=== PATIENT | male | born 1975 | race Caucasian/White ===

== ENCOUNTER 2018-05-12 21:39 | Emergency (ER) | payer OTHER ==
[~2018-05-12] VITALS: Ht 175.3 cm; Wt 87.1 kg
[~2018-05-12 21:39] MED LIST: AMLO5 PO; BISA10S PR; CLON1 PO; GABA300 PO; HYDACE5 PO; Humulin R500 UNIT/1 IJ; INSLI100I SC; INSULANPEN; INSULIN LEVIMIR; LISI20; METF500; METO25ER PO; METO50ER; Miralax17 GM PO; PIOG15; TADA10TA PO; TRAM50 PO
[2018-05-12 22:26] LABS: BASOPHILS ABSOLUTE AUTO 0.06 K/mm3 (0.00-0.23); BASOPHILS PERCENT AUTO 0 % (0-2); EOSINOPHILS ABSOLUTE AUTO 0.09 K/mm3 (0.00-0.68); EOSINOPHILS PERCENT AUTO 1 % (0-6); Hematocrit 39.9 % (37.0-53.0); Hemoglobin 14.2 g/dL (13.5-17.5); IMMATURE GRAN ABSOLUTE AUTO 0.18 K/mm3 (0.00-0.10); IMMATURE GRAN PERCENT AUTO 1 % (0-1); LYMPHOCYTES ABSOLUTE AUTO 2.11 K/mm3 (0.84-5.20); LYMPHOCYTES PERCENT AUTO 12 % (21-46); MONOCYTES ABSOLUTE AUTO 1.07 K/mm3 (0.16-1.47); MONOCYTES PERCENT AUTO 6 % (4-13); Mean Corpuscular HGB 29.1 pg (26.0-34.0); Mean Corpuscular HGB Conc 35.6 g/dL (31.5-36.5); Mean Corpuscular Volume 82 fL (80-100); Mean Platelet Volume 10.1 fL (9.1-12.4); NEUTROPHILS ABSOLUTE AUTO 14.43 K/mm3 (1.96-9.15); NEUTROPHILS PERCENT AUTO 80 % (41-73); Platelet Count 404 K/mm3 (150-400); RDW Coefficient Variation 11.8 % (11.7-14.2); RDW Standard Deviation 34.9 fL (35.1-46.3); Red Blood Cell Count 4.88 M/mm3 (4.30-5.90); White Blood Cell Count 17.94 K/mm3 (4.00-11.30)
[2018-05-12 22:45] LABS: Alanine Aminotransfer (ALT/SGP 28 U/L (12-78); Albumin, Blood 3.3 g/dL (3.4-5.0); Albumin/Globulin Ratio 0.7 (0.8-1.8); Alk Phos 74 U/L (50-136); Anion Gap 10 mmol/L (6-16); Aspartate Aminotrans (AST/SGOT 14 U/L (12-37); Bilirubin, Total 0.3 mg/dL (0.1-1.0); Blood Urea Nitrogen 19 mg/dL (8-24); Bun/Creatinine Ratio 25.7 (12.0-20.0); CO2, Blood 24 mmol/L (21-32); Calcium, Blood 9.4 mg/dL (8.5-10.1); Chloride, Blood 101 mmol/L (98-108); Creatinine, Blood 0.74 mg/dL (0.60-1.20); Globulin, Blood 4.5 g/dL (2.2-4.0); Glomerular Filtration Rate >60 (60-); Glucose, Blood 389 mg/dL (70-99); Potassium, Blood 4.3 mmol/L (3.5-5.5); Sodium, Blood 135 mmol/L (136-145); Total Protein, Blood 7.8 g/dL (6.4-8.2)
[2018-05-13] MEDS ORDERED: Valium5 MG PO (03:58)
[2018-05-13] MEDS ORDERED: Zofran Odt8 MG SL (03:58)
[2018-05-13] MEDS ORDERED: Motion Sickness25 M1 PO (03:58)
== END 2018-05-13 04:12 | disposition home or self-care (01) ==
LOC: ER 21:39
PROVIDERS: Internal Medicine
DX: H81.10 Benign paroxysmal vertigo, unspecified ear (principal); E11.65 Type 2 diabetes mellitus with hyperglycemia; Z79.4 Long term (current) use of insulin; Z79.899 Other long term (current) drug therapy; Z79.84 Long term (current) use of oral hypoglycemic drugs; I10 Essential (primary) hypertension
CPT/HCPCS: 36415; 80053; 85025; 93005; 93010; 96374; 96376; 99283; J2405

== ENCOUNTER → 2020-03-03 | Outpatient (CLI) | payer OTHER ==
[~2020-03-03] MED LIST changes: +Motion Sickness25 M1 PO; +Valium5 MG PO; +Zofran Odt8 MG SL
== END | disposition home or self-care (01) ==
LOC: LAB SHORT 13:11 → LAB 13:11
DX: E10.65 Type 1 diabetes mellitus with hyperglycemia (principal)
CPT/HCPCS: 82043

== ENCOUNTER 2020-04-15 07:51 | Inpatient (IN) | payer OTHER ==
[~2020-04-15] VITALS: Ht 175.3 cm; Wt 101.5 kg
[~2020-04-15 07:51] MED LIST changes: +AMOCLA875 PO; +Humalog100 UNIT/1; -LISI20; +LISI20 PO; +OXYC5 PO
[2020-04-15 08:15] LABS: BASOPHILS ABSOLUTE AUTO 0.05 K/mm3 (0.00-0.23); BASOPHILS PERCENT AUTO 0 % (0-2); EOSINOPHILS ABSOLUTE AUTO 0.58 K/mm3 (0.00-0.68); EOSINOPHILS PERCENT AUTO 4 % (0-6); Hematocrit 34.9 % (37.0-53.0); Hemoglobin 11.5 g/dL (13.5-17.5); IMMATURE GRAN ABSOLUTE AUTO 0.07 K/mm3 (0.00-0.10); IMMATURE GRAN PERCENT AUTO 0 % (0-1); LYMPHOCYTES ABSOLUTE AUTO 1.47 K/mm3 (0.84-5.20); LYMPHOCYTES PERCENT AUTO 9 % (21-46); MONOCYTES ABSOLUTE AUTO 1.68 K/mm3 (0.16-1.47); MONOCYTES PERCENT AUTO 10 % (4-13); Mean Corpuscular HGB 29.7 pg (26.0-34.0); Mean Corpuscular Volume 90 fL (80-100); Mean Platelet Volume 10.7 fL (9.1-12.4); NEUTROPHILS ABSOLUTE AUTO 12.36 K/mm3 (1.96-9.15); NEUTROPHILS PERCENT AUTO 76 % (41-73); Platelet Count 354 K/mm3 (150-400); RDW Coefficient Variation 12.5 % (11.7-14.2); RDW Standard Deviation 41.2 fL (35.1-46.3); Red Blood Cell Count 3.87 M/mm3 (4.30-5.90); White Blood Cell Count 16.21 K/mm3 (4.00-11.30)
[2020-04-15 08:30] LABS: Albumin, Blood 2.6 g/dL (3.4-5.0); Albumin/Globulin Ratio 0.6 (0.8-1.8); Bilirubin, Total 0.6 mg/dL (0.1-1.0); Bun/Creatinine Ratio 17.4 (12.0-20.0); Calcium, Blood 8.9 mg/dL (8.5-10.1); Creatinine, Blood 1.38 mg/dL (0.60-1.20); Globulin, Blood 4.6 g/dL (2.2-4.0); Total Protein, Blood 7.2 g/dL (6.4-8.2)
[2020-04-15 11:15] LABS: Source, Urine Clean Catch
[2020-04-15 11:22] LABS: Bilirubin, Urine Neg (Neg); Blood, Urine 2+ (Neg); Glucose Qualitative, Urine 2+ (Neg); Ketones, Urine 2+ (Neg); Leukocyte Esterase, Urine Neg (Neg); Nitrite, Urine Neg (Neg); Protein, Urine 3+ (Neg); Specific Gravity, Urine 1.005 (1.003-1.022); Urobilinogen, Urine NORM (Normal); pH, Urine 6.5 (5.0-8.0)
[2020-04-15 11:40] LABS: Appearance, Urine Clear (Clear); Color, Urine Yellow (P-Yellow)
[2020-04-15 11:42] LABS: Bacteria Rare /hpf; Squamous Epithelial Cells Not Seen /hpf (Few); White Blood Cells, Urine 0-2 /hpf (0-5)
--- NOTE | 2020-04-15 14:16 | NUR ---
PT ARRIVED TO UNIT AT APROX 1318 FROM ER, TRANSFERED TO BED USING SLIDER SHEET. PT APPEARS TO BE VERY UNCOMFORTABLE, MOANING AND YELLING OUT. HYPERTENSIVE (SEE VS). PT MEDICATED WITH TORADOL AND FENTANYL PER EMAR, RECHECK OF BP IMPROVED, WILL CONTINUE TO MONITOR. APPEARS TO BE RESTING COMFORTABLY AT THIS TIME.
--- NOTE | 2020-04-15 22:18 | NUR ---
NOTIFIED DR. HASKINS REGARDING PT'S HIGH BLOOD PRESSURE AND POOR PAIN MANAGEMENT. NEW ORDER TO CONSULT HOSPITALIST FOR BP AND DIABETES MANAGEMENT.
--- NOTE | 2020-04-15 22:30 | NUR ---
CALL PLACED TO HOSPITALIST FOR NEW CONSULT ORDER. AWAITING CALL BACK.
--- NOTE | 2020-04-15 23:30 | NUR ---
ANOTHER ATTEMPT TO CALL HOSPITALIST AT THIS TIME. WAITING FOR CALL BACK.
--- NOTE | 2020-04-16 00:55 | NUR ---
CALL PLACED TO [facility] REGARDING BP. NO ANSWER AT THIS TIME.
--- NOTE | 2020-04-16 01:25 | NUR ---
DR. CONWAY IN TO SEE PATIENT
[2020-04-16 04:03] LABS: BASOPHILS ABSOLUTE AUTO 0.04 K/mm3 (0.00-0.23); BASOPHILS PERCENT AUTO 0 % (0-2); EOSINOPHILS ABSOLUTE AUTO 0.12 K/mm3 (0.00-0.68); EOSINOPHILS PERCENT AUTO 1 % (0-6); Hemoglobin 10.7 g/dL (13.5-17.5); IMMATURE GRAN ABSOLUTE AUTO 0.06 K/mm3 (0.00-0.10); IMMATURE GRAN PERCENT AUTO 0 % (0-1); LYMPHOCYTES PERCENT AUTO 10 % (21-46); MONOCYTES ABSOLUTE AUTO 1.58 K/mm3 (0.16-1.47); MONOCYTES PERCENT AUTO 12 % (4-13); Mean Corpuscular HGB 28.9 pg (26.0-34.0); Mean Corpuscular HGB Conc 32.4 g/dL (31.5-36.5); Mean Corpuscular Volume 89 fL (80-100); Mean Platelet Volume 10.5 fL (9.1-12.4); NEUTROPHILS ABSOLUTE AUTO 10.55 K/mm3 (1.96-9.15); NEUTROPHILS PERCENT AUTO 77 % (41-73); Platelet Count 339 K/mm3 (150-400); RDW Coefficient Variation 12.1 % (11.7-14.2); RDW Standard Deviation 39.4 fL (35.1-46.3); White Blood Cell Count 13.65 K/mm3 (4.00-11.30)
[2020-04-16 04:28] LABS: Alanine Aminotransfer (ALT/SGP 34 U/L (12-78); Albumin, Blood 2.2 g/dL (3.4-5.0); Albumin/Globulin Ratio 0.5 (0.8-1.8); Alk Phos 77 U/L (50-136); Anion Gap 7 mmol/L (6-16); Aspartate Aminotrans (AST/SGOT 19 U/L (12-37); Bilirubin, Total 0.7 mg/dL (0.1-1.0); Blood Urea Nitrogen 23 mg/dL (8-24); Bun/Creatinine Ratio 18.4 (12.0-20.0); CO2, Blood 25 mmol/L (21-32); Calcium, Blood 8.2 mg/dL (8.5-10.1); Chloride, Blood 105 mmol/L (98-108); Creatinine, Blood 1.25 mg/dL (0.60-1.20); Globulin, Blood 4.2 g/dL (2.2-4.0); Glomerular Filtration Rate >60 (60-); Glucose, Blood 260 mg/dL (70-99); Phosphorus, Blood 3.6 mg/dL (2.5-4.9); Potassium, Blood 4.6 mmol/L (3.5-5.5); Sodium, Blood 137 mmol/L (136-145); Total Protein, Blood 6.4 g/dL (6.4-8.2)
--- NOTE | 2020-04-16 05:44 | NUR ---
CALL PLACED TO HOSPITALIST REGARDING NO PROGRESS IN BP DESPITE GIVING ORDERED MEDS. NO ANSWER AT THIS TIME.
--- NOTE | 2020-04-16 05:50 | NUR ---
SPOKE TO DR CONWAY WHO IS RECOMMENDING PT BE TRANSFERED TO ICU, NURSING DIRECTOR PHARMACEUTICAL NOTIFIED.
--- NOTE | 2020-04-16 07:04 | NUR ---
TRANSFER PT TRANSFERED FROM 231 DUE TO HYPERTENSION. PT ARRIVED VIA BED AT 0640. TRANSFERED TO BED BY STAFF WITH SLIDER SHEET. PT AWAKE BUT WITHDRAWN DUE TO PAIN. ABD FIRM AND TENDER. NTG STARTED ON 15MCQ. CALL TO FOR UPDATE.REPORT TO ON COMING NURSE
[2020-04-16 13:21] LABS: Adenovirus F 40/41 Not Detected (NOT DETECT); Astrovirus Not Detected (NOT DETECT); Campylobacter Sp Not Detected (NOT DETECT); Cryptosporidium Not Detected (NOT DETECT); Cyclospora Cayetanensis Not Detected (NOT DETECT); E. Coli O157 Not Detected (NOT DETECT); Entamoeba Histolytica Not Detected (NOT DETECT); Enteroaggregative E. coli-EAEC Not Detected (NOT DETECT); Enteropathogenic E. coli-EPEC Not Detected (NOT DETECT); Enterotoxigenic E. coli-ETEC Not Detected (NOT DETECT); Giardia Lamblia Not Detected (NOT DETECT); Norovirus GI/GII Not Detected (NOT DETECT); Plesiomonas Shigelloides Not Detected (NOT DETECT); Rotavirus A Not Detected (NOT DETECT); Salmonella Sp Not Detected (NOT DETECT); Sapovirus Not Detected (NOT DETECT); Shiga Toxin-prod E. coli-STEC Not Detected (NOT DETECT); Shigella/Enteroin E. coli-EIEC Not Detected (NOT DETECT); Vibrio Cholerae Not Detected (NOT DETECT); Vibrio Sp Not Detected (NOT DETECT); Yersinia Enterocolitica Not Detected (NOT DETECT)
--- NOTE | 2020-04-16 15:09 | NUR ---
DR HASKINS: PROVIDER HAS CALLED TO UPDATE THIS RN ON POC. HE HAS DISCUSSED HIDA SCAN W/ RADIOLOGIST. BILE LEAK PRESENT BUT AT THIS TIME IS TOO SMALL FOR DRAIN TO BE PLACED. WILL REPEAT CT SCAN OF ABD IN NEXT COUPLE OF DAYS TO DETERMINE IF COLLECTION OF FLUID HAS INCREASED IN SIZE. OTHERWISE PT IS OKAY TO EAT/ DRINK TOLERATED & OKAY TO TRANSFER BACK TO SURGICAL FLOOR STATUS ONCE NITRO DRIP TITRATED OFF. ORDERS PLACED. WILL UPDATE PT & SPOUSE ON THIS POC.
--- NOTE | 2020-04-16 16:20 | NUR ---
DR YOUNG: CALL TO PROVIDER TO DISCUSS POC. NOTIFIED HIM THAT PT's BP IS NOW BETTER CONTROLLED, HE STS TO D/C NITRO DRIP & THAT HE WILL PLACE ORDERS FOR THE PT TO HAVE PO BP MEDICATIONS. HE STS OKAY FOR PT TO BE SURGICAL W/ TELE STATUS ONCE NITRO HAS BEEN TURNED OFF & BP REMAINS STABLE. CBG CHECKS & INSULIN REGIMEN HAVE BEEN CHANGED TO AC&HS PT NOW HAS DIET ORDERED. MAINTAINENCE IVFs D/C'd R/T HTN & PT NOW TOLERATING PO INTAKE OF FLUIDS.
--- NOTE | 2020-04-16 16:58 | NUR ---
SHIFT SUMMARY: NO ACUTE CHANGES SINCE PRIOR UPDATES. PT IS NOW IN BETTER SPIRITS & PAIN IS MANAGED WELL W/ MEDS PER EMAR. LS ARE CLEAR T/O, PT ON 2L NC W/ O2 SATS > 92%. DEEP BREATHING ENCOURAGED PT IS BREATHING SHALLOW R/T ABD PAIN. MONITOR SHOWS SR W/ HR 70s. NITRO DRIP TITRATING DOWN W/ BETTER BP CONTROL. PT HAS NO GI COMPLAINTS & IS TOLERATING PO INTAKE OF CLEAR LIQUIDS WELL. VOIDS W/O DIFFICULTY USING URINAL & STANDING AT BEDSIDE. SKIN CONDITION OVERALL CDI, STERI STRIPS TO LAP SITES x3 CDI. WILL CONTINUE TO MONITOR & REPORT OFF TO RN ASSUMING CARE.
--- NOTE | 2020-04-16 20:00 | NUR ---
ASSUMED CARE OF PT AT 1915. REPORT RECEIVED AT BEDSIDE. PT PRESENTS WITH SOMEWHAT FLAT AFFECT. WHEN QUESTIONED IF PT HAD ANY PAIN, HE DENIES. UPON ASSESSMENT OF PT, VERY LIGHT ABDOMINAL PERCUSSION DONE WHICH PATIENT STATED WAS VERY PAINFUL. MEDICATED PT WITH DILAUDID 1 MG. PT STATES THIS HAS IMPROVED. ENCOURAGED COUGH AND DEEP BREATHE. TEACHING DONE ON PAIN MANAGEMENT. PT VERBALIZES UNDERSTANDING. WILL REVIEW CHART AND PLAN OF CARE FOR THIS PT.
--- NOTE | 2020-04-17 | NUR ---
PT MEDICATED WITH 1 MG DILAUDID FOR ABDOMINAL PAIN. HAVE DONE TEACHING CONCERNING MOBILIZATION TO FACILITATE MOVEMENT OF GAS. PT HAS HAD BELCHING AND HAS PASSED SOME FLATUS. PT STATES DILAUDID HAS HELPED WITH PAIN. WILL CONTINUE TO MONITOR PT.
--- NOTE | 2020-04-17 02:34 | NUR ---
PT MEDICATED WITH 10 MG HYDRALAZINE FOR PERSISTENT HYPERTENSION. PT AWAKENS AND HAS COMPLAINTS OF INCREASED ABDOMINAL PAIN WHEREAS HE FEELS VERY "GASSY" PT UP TO TOILET TO ATTEMPT BOWEL MOVEMENT OR EXPEL FLATUS. WILL EVALUATE PAIN MEDICATIONS FOR PT WHEN HE RETURNS TO BED.
--- NOTE | 2020-04-17 06:41 | NUR ---
PT MEDICATED AGAIN WITH 10MG HYDRALAZINE FOR INCREASING BLOOD PRESSURE. PT CURRENTLY SITTING UP AT SIDE OF BED. HAS BELCHING WHICH HE SAYS IMPROVES DISCOMFORT IN ABDOMEN. DID OPT TO GIVE 1 MG DILAUDID FOR PAIN. WILL CONTINUE TO MONITOR PT, AND WILL REPORT OFF TO ONCOMING RN.
[2020-04-17 07:39] LABS: Hematocrit 31.4 % (37.0-53.0); Hemoglobin 10.6 g/dL (13.5-17.5); Mean Corpuscular HGB 29.9 pg (26.0-34.0); Mean Corpuscular HGB Conc 33.8 g/dL (31.5-36.5); Mean Corpuscular Volume 89 fL (80-100); Mean Platelet Volume 10.2 fL (9.1-12.4); Platelet Count 326 K/mm3 (150-400); RDW Coefficient Variation 12.1 % (11.7-14.2); RDW Standard Deviation 39.9 fL (35.1-46.3); Red Blood Cell Count 3.54 M/mm3 (4.30-5.90); White Blood Cell Count 12.19 K/mm3 (4.00-11.30)
[2020-04-17 07:55] LABS: Anion Gap 9 mmol/L (6-16); Blood Urea Nitrogen 24 mg/dL (8-24); Bun/Creatinine Ratio 18.6 (12.0-20.0); CO2, Blood 24 mmol/L (21-32); Calcium, Blood 8.1 mg/dL (8.5-10.1); Chloride, Blood 104 mmol/L (98-108); Creatinine, Blood 1.29 mg/dL (0.60-1.20); Glomerular Filtration Rate >60 (60-); Glucose, Blood 233 mg/dL (70-99); Potassium, Blood 4.2 mmol/L (3.5-5.5); Sodium, Blood 137 mmol/L (136-145)
--- NOTE | 2020-04-17 09:52 | NUR ---
PT SEEMS TO HAVE WAVES OF PAIN THE IS LOCATED R SIDE. C/O 03/11 NOW. BELCHING SEEMS TO AID PAIN CONTROL.
--- NOTE | 2020-04-17 12:10 | NUR ---
REPORT CALLED TO KANCHAN AMEZQUITA AND WILL TRANSPORT TO SURG FLOOR-215. PT IS CURRENTLY KNAPPING AND SEEMS THAT PAIN IS CONTROLLED. WILL TRANFER DARIEN.
--- NOTE | 2020-04-17 14:23 | NUR ---
PT ARRIVED TO THE ROOM AT APPROXIMATELY 1245. PT WAS ABLE TO TRANSFER HIMSELF INDEPENDENTLY FROM THE WHEELCHAIR TO THE BED. HE RATED HIS PAIN AT 4/10, HE IS STOIC ABOUT HIS PAIN. BP ELEVATED, PT WAS PROVIDED WITH PAIN MEDICATION AND BP IMPROVED TO 149/60. WHEN PT ARRIVED TO THE UNIT HE WAS HAVING DRAINAGE FROM ONE OF HIS INCISIONS. THE DRAINAGE IS CLEAR AND YELLOW/GREEN, IT APPEARS THAT IT COULD BE BILE. AWAITING CALL FROM DR. HASKINS AT THIS TIME. WILL CONTINUE TO MONITOR.
--- NOTE | 2020-04-17 14:55 | NUR ---
DRAINAGE PT IS CONTINUING TO HAVE RUQ PAIN. PT CONTINUES TO HAVE YELLOW/GREEN CLEAR FLUID DRAIN FROM HIS INCISION SITE. DR. HASKINS NOTIFIED. WILL CONTINUE TO MONITOR.
--- NOTE | 2020-04-17 17:52 | NUR ---
NAUSEA AND VOMITING DR. YOUNG NOTIFIED THAT PT HAS NOT BEEN ABLE TO KEEP FLUIDS DOWN SINCE HE ARRIVED TO THE FLOOR. WILL START LR PER DR. YOUNG. WILL TREAT ELEVATED BP WITH HYDRALAZINE. WILL CONTINUE TO MONITOR UNTIL REPORT TO ONCOMING RN.
--- NOTE | 2020-04-17 18:39 | NUR ---
SHOULDER PAIN, NAUSEA DR. HASKINS WAS CONTACTED REGARDING NAUSEA AND VOMITING AFTER PT ATTEMPTED TO EAT JELLO. PT ALSO COMPLAINS OF INTERMITTENT SEVERE L SHOULDER PAIN. HE MOANS AND IS OCCASIONALLY AWAKENED BY PAIN. DRAINAGE FROM INCISION SITE APPEARS TO HAVE SLOWED AT THIS TIME. DR. HASKINS NOTIFIED OF CHANGES. WILL OBTAIN EKG AND TROPONIN PER DR. HASKINS. DR. HASKINS REPORTED HE WILL ORDER ANTIBIOTICS FOR THIS PATIENT. WILL CONTINUE TO MONITOR UNTIL REPORT TO ONCOMING RN.
--- NOTE | 2020-04-17 19:38 | NUR ---
SHIFT SUMMARY PT HAS HAD INCREASED PAIN TOWARD THE END OF THE DAY. PAIN HAS INCREASED IN HIS ABD AND TO HIS L SHOULDER. DR. HASKINS AND DR. YOUNG WERE NOTIFIED. EKG DONE, AWAITING TROPONIN LAB RESULTS. BP ELEVATED, PT GIVEN HYDRALAZINE AND LISINOPRIL PER DR. YOUNG. HE HAS ALSO STARTED VOMITING AFTER EATING PART OF A JELLO. PT VOMITED AGAIN WITHOUT ANY PO INPUT. PT STARTED ON IV FLUIDS FOR HYDRATION. REPORT GIVEN TO SKYE AMEZQUITA.
--- NOTE | 2020-04-17 20:13 | NUR ---
PT IN 10 PAIN AT SHIFT CHANGE WITH NAUSEA. PT GUARDING ABDOMEN AND UNABLE TO FORM A COMPLETE SENTENCE WITH PAIN BP ELEVATED INTO 180'S. REPORTED PAIN IN LEFT SHOULDER AND MIDDLE OF CHEST AT BASE OF STERNUM/ TO RUQ. GAVE 50 OF FENT PER EMAR AND 2 NORCO TO HELP WITH PAIN REPORTED DECREASE TO 03/11. AT 2011 PT IN 09/10 PAIN AGAIN RESP ELEVATED REPORTING PAIN IN CHEST LEFT SHOULDER AND SOME IN HIS JAW. SPOKE WITH DR HASKINS AT 2005 REGARDING TROPONIN LEVELS, ORDERS TO TREND ANOTHER TROPONIN IN 8HRS GIVEN. CALL OUT TO HOSPITALIST AT 2011 REGARDING NEW RESURGANCE OF PAIN AND LOCATION.
--- NOTE | 2020-04-17 21:16 | NUR ---
PT TO IMAGING VIA GURNEY. STILL REPORTING PAIN BUT TOLERATED SLIDE. PLAN IS TO FINISH SCAN AND DETERMINE WHERE TO TRANSFER AFTER.
--- NOTE | 2020-04-17 21:42 | NUR ---
PCU RETURNED FROM IMAGINE TO PCU 1, REPORT GIVEN TO BIA TONY. BELONGINGS TAKEN OVER TO PT'S ROOM. MEDICATIONS AND CHART SENT WITH PATIENT
--- NOTE | 2020-04-18 01:12 | NUR ---
PT FROM SURGICAL FLOOR APPROXIMATELY @ 2135; PT ALERT; C/O 8 OF 10 IN LOWER MIDDLE ABDOMEN; PT SPLINTING W/PILLOW; REPEAT CT WAS OBTAINED BEFORE PT TRANSFERED TO UNIT; ORION [place] TO SEE PT; 100MCG FENTANYL GIVEN PER EMAR; PT C/O OF NECK PAIN; HEAT/COLD OFFERED, PT REFUSED; PT ORIENTED TO UNIT; SKID FREE SOCKS IN PLACE; EDUCATED ON SAFETY AND USE OF CALL LIGHT; CALL LIGHT IN REACH; BED IN LOWEST POSITION
--- NOTE | 2020-04-18 03:05 | NUR ---
UPDATE PT C/O SEVERE PAIN; STATES FENTANYL HELPED, THEN AGAIN STATES IN A FEW MINUTES EXTREME PAIN; SPLINTING W/ PILLOW; WRITHING IN PAIN; PROVIDER NOTIFIED; NEW ORDER FOR DILAUDID GIVEN; CALL LIGHT IN REACH
[2020-04-18 03:06] LABS: Alanine Aminotransfer (ALT/SGP 27 U/L (12-78); Albumin, Blood 2.6 g/dL (3.4-5.0); Albumin/Globulin Ratio 0.6 (0.8-1.8); Alk Phos 111 U/L (50-136); Anion Gap 11 mmol/L (6-16); Aspartate Aminotrans (AST/SGOT 16 U/L (12-37); Bilirubin, Total 0.6 mg/dL (0.1-1.0); Blood Urea Nitrogen 25 mg/dL (8-24); Bun/Creatinine Ratio 20.7 (12.0-20.0); CO2, Blood 21 mmol/L (21-32); Calcium, Blood 8.8 mg/dL (8.5-10.1); Chloride, Blood 105 mmol/L (98-108); Creatinine, Blood 1.21 mg/dL (0.60-1.20); Globulin, Blood 4.7 g/dL (2.2-4.0); Glomerular Filtration Rate >60 (60-); Glucose, Blood 199 mg/dL (70-99); Potassium, Blood 4.6 mmol/L (3.5-5.5); Sodium, Blood 137 mmol/L (136-145); Total Protein, Blood 7.3 g/dL (6.4-8.2); Troponin I 0.049 ng/mL (0.000-0.040)
--- NOTE | 2020-04-18 04:54 | NUR ---
SHIFT SUMMARY PT GIVEN 100 MCG FENTANYL @ 0220; 1 MG DILAUDID @ 0320; PT REQUESTING MORE PAIN MEDICATION; HEATING PAD IN PLACE L SHOULDER; BP ELEVATED; LABETALOL 10 MG @ 0347; HYDRALYZINE 10MG @ 0423; BP IS DOWNTRENDING; NSR NOTED ON TELE W/ HR 88; ZOFRAN ADMINISTERED FOR NAUSEA PER EMAR; PT CURRENTLY RESTING QUIETLY IN BED; 2L O2 NC PUT ON PT; O2 SATS >94; PT STANDS AT BEDSIDE FOR URINAL; PT ENCOURAGED TO TELEPHONE FAMILY START OF SHIFT; ASSISTANCE OFFERED; PT STATED HE COULD USE HIS CELL PHONE TO NOTIFY THEM HE WAS IN PCU; PT CALLS OUT; EDUCATED ON USING CALL LIGHT; CALL LIGHT IN REACH; BED IN LOWEST POSITION; WILL CONTINUE TO MONITOR CLOSELY UNTIL HAND OFF TO DAY SHIFT RN.
--- NOTE | 2020-04-18 07:52 | NUR ---
ASSUMED CARE AT 0700. REPORT FROM BIA TONY. RESTING SUPINE FLAT IN BED. AWAKE AND ANSWERS QUESTIONS. MULIPTIPLE PAIN COMPLAINTS INCLUDING LEFT SIDE OF NECK, BILATERAL ABDOMEN AND LEFT HAND. REPORTS HX NEUROPATHY TO LOWER LEGS. PLAN OF CARE REVIEWED INCLUDING SCHEDULED PAIN MEDS. VERBAL UNDERSTANDING THAT FENTANYL WAS GIVEN AT 0640 AND IS Q2 HOURS. WILL CONTINUE TO MONITOR.
--- NOTE | 2020-04-18 10:00 | NUR ---
SPOKE WITH DR. KIMBALL, CT ORDERED THIS AM WAS A DUPLICATE ORDER, CT WITH CONTRAST COMPLETE LAST NIGHT. CANCELLED TODAYS CT PER VERBAL ORDER FROM DR. KIMBALL.
== END 2020-04-18 16:02 | disposition short-term general hospital (02) | DRG 394 ==
LOC: ER 07:51 → SURS 07:52 → ICUE 07:52 → SURS 13:03 → ICUE 04-16 06:48 → SURS 04-17 12:55 → PCU 04-17 21:31
PROVIDERS: Emergency Medicine; Internal Medicine; Nurse Practitioner Acute Care; ADMIT Surgery
DX: K91.86 Retained cholelithiasis following cholecystectomy (principal); N17.9 Acute kidney failure, unspecified; I16.0 Hypertensive urgency; E11.9 Type 2 diabetes mellitus without complications; Z96.41 Presence of insulin pump (external) (internal); I10 Essential (primary) hypertension; K83.9 Disease of biliary tract, unspecified; K59.00 Constipation, unspecified
CPT/HCPCS: 0097U; 36415; 71260; 74177; 78226; 80048; 80053; 81001; 82947; 83605; 83690; 83880; 84100; 84484; 85025; 85027; 85730; 93005; 93010; 94762; 96361; 96361-59; 96374-59; 96375; 96375-59; 96376; 96376-59; 99285-25; A9270-GY; A9537; G0378; J0360; J1170; J1885; J2405; J2550; J3010; J7030; J7120; Q9967

== ENCOUNTER → 2020-11-27 | Outpatient (CLI) | payer OTHER ==
[2020-11-27 09:47] LABS: BASOPHILS ABSOLUTE AUTO 0.04 K/mm3 (0.00-0.23); BASOPHILS PERCENT AUTO 0 % (0-2); EOSINOPHILS ABSOLUTE AUTO 0.18 K/mm3 (0.00-0.68); EOSINOPHILS PERCENT AUTO 2 % (0-6); Hematocrit 42.6 % (37.0-53.0); Hemoglobin 14.9 g/dL (13.5-17.5); IMMATURE GRAN ABSOLUTE AUTO 0.03 K/mm3 (0.00-0.10); IMMATURE GRAN PERCENT AUTO 0 % (0-1); LYMPHOCYTES PERCENT AUTO 25 % (21-46); MONOCYTES ABSOLUTE AUTO 0.87 K/mm3 (0.16-1.47); MONOCYTES PERCENT AUTO 9 % (4-13); Mean Corpuscular HGB 29.5 pg (26.0-34.0); Mean Corpuscular Volume 84 fL (80-100); Mean Platelet Volume 11.3 fL (9.1-12.4); NEUTROPHILS ABSOLUTE AUTO 5.79 K/mm3 (1.96-9.15); NEUTROPHILS PERCENT AUTO 63 % (41-73); Platelet Count 290 K/mm3 (150-400); RDW Coefficient Variation 12.2 % (11.7-14.2); RDW Standard Deviation 37.2 fL (35.1-46.3); Red Blood Cell Count 5.05 M/mm3 (4.30-5.90); White Blood Cell Count 9.21 K/mm3 (4.00-11.30)
[2020-11-27 10:09] LABS: Alanine Aminotransfer (ALT/SGP 20 U/L (12-78); Albumin, Blood 3.5 g/dL (3.4-5.0); Albumin/Globulin Ratio 0.9 (0.8-1.8); Alk Phos 67 U/L (50-136); Anion Gap 5 mmol/L (6-16); Aspartate Aminotrans (AST/SGOT 14 U/L (12-37); Bilirubin, Total 0.4 mg/dL (0.1-1.0); Blood Urea Nitrogen 14 mg/dL (8-24); Bun/Creatinine Ratio 14.2 (12.0-20.0); CO2, Blood 27 mmol/L (21-32); Calcium, Blood 9.4 mg/dL (8.5-10.1); Chloride, Blood 109 mmol/L (98-108); Creatinine, Blood 0.99 mg/dL (0.60-1.20); Globulin, Blood 3.9 g/dL (2.2-4.0); Glomerular Filtration Rate >60 (60-); Glucose, Blood 155 mg/dL (70-99); Sodium, Blood 141 mmol/L (136-145); Total Protein, Blood 7.4 g/dL (6.4-8.2)
== END | disposition home or self-care (01) ==
LOC: LAB SHORT 09:15
PROVIDERS: Emergency Medicine
DX: R10.11 Right upper quadrant pain (principal); R10.9 Unspecified abdominal pain
CPT/HCPCS: 80053; 85025

== ENCOUNTER 2021-09-21 03:00 | Emergency (ER) | payer OTHER ==
[~2021-09-21] VITALS: Ht 175.3 cm; Wt 99.8 kg
[2021-09-21 03:39] LABS: BASOPHILS ABSOLUTE AUTO 0.05 K/mm3 (0.00-0.23); BASOPHILS PERCENT AUTO 0 % (0-2); EOSINOPHILS ABSOLUTE AUTO 0.16 K/mm3 (0.00-0.68); EOSINOPHILS PERCENT AUTO 1 % (0-6); Hematocrit 36.9 % (37.0-53.0); Hemoglobin 13.3 g/dL (13.5-17.5); IMMATURE GRAN ABSOLUTE AUTO 0.05 K/mm3 (0.00-0.10); IMMATURE GRAN PERCENT AUTO 0 % (0-1); LYMPHOCYTES ABSOLUTE AUTO 1.93 K/mm3 (0.84-5.20); LYMPHOCYTES PERCENT AUTO 15 % (21-46); MONOCYTES ABSOLUTE AUTO 1.12 K/mm3 (0.16-1.47); MONOCYTES PERCENT AUTO 9 % (4-13); Mean Corpuscular HGB 29.6 pg (26.0-34.0); Mean Corpuscular Volume 82 fL (80-100); Mean Platelet Volume 11.2 fL (9.1-12.4); NEUTROPHILS ABSOLUTE AUTO 9.87 K/mm3 (1.96-9.15); NEUTROPHILS PERCENT AUTO 75 % (41-73); Platelet Count 311 K/mm3 (150-400); RDW Standard Deviation 35.8 fL (35.1-46.3); Red Blood Cell Count 4.49 M/mm3 (4.30-5.90); White Blood Cell Count 13.18 K/mm3 (4.00-11.30)
[2021-09-21 03:54] LABS: Albumin, Blood 2.9 g/dL (3.4-5.0); Albumin/Globulin Ratio 0.7 (0.8-1.8); Bilirubin, Total 0.4 mg/dL (0.1-1.0); Bun/Creatinine Ratio 13.6 (12.0-20.0); Calcium, Blood 8.5 mg/dL (8.5-10.1); Creatinine, Blood 1.62 mg/dL (0.60-1.20); Potassium, Blood 3.8 mmol/L (3.5-5.5); Total Protein, Blood 6.9 g/dL (6.4-8.2); Troponin I 0.03 ng/mL (0.000-0.040)
[2021-09-21 05:36] LABS: Source, Urine Clean Catch
[2021-09-21 05:38] LABS: Bilirubin, Urine Neg (Neg); Blood, Urine 3+ (Neg); Glucose Qualitative, Urine 4+ (Neg); Ketones, Urine Neg (Neg); Leukocyte Esterase, Urine Neg (Neg); Nitrite, Urine Neg (Neg); Protein, Urine 4+ (Neg); Urobilinogen, Urine NORM (Normal)
[2021-09-21] MEDS ORDERED: PRED20 PO (05:47)
[2021-09-21] MEDS ORDERED: BENZ100A PO (05:47)
[2021-09-21] MEDS ORDERED: ALBU90OI INH (05:47)
[2021-09-21 05:48] LABS: U Amphetamine Screen Not Detected; U Barbituate Screen Not Detected; U Benzodiazapine Screen Not Detected; U Buprenorphine Screen Not Detected; U Cannabinoids Screen Not Detected; U Cocaine Screen Not Detected; U Methadone Screen Not Detected; U Methamphetamine Screen Not Detected; U Opiates Screen Not Detected; U Oxycodone Screen Not Detected; U Phencyclidine Screen Not Detected; U Propoxyphene Screen Not Detected
[2021-09-21 05:51] LABS: Appearance, Urine Hazy (Clear); Bacteria Not Seen /hpf; Color, Urine Yellow (P-Yellow); Squamous Epithelial Cells Few /hpf (Few); White Blood Cells, Urine Not Seen /hpf (0-5)
== END 2021-09-21 06:05 | disposition home or self-care (01) ==
LOC: ER 03:00
PROVIDERS: Emergency Medicine
DX: I16.0 Hypertensive urgency (principal); E11.65 Type 2 diabetes mellitus with hyperglycemia; Z79.4 Long term (current) use of insulin; Z79.899 Other long term (current) drug therapy; Z87.891 Personal history of nicotine dependence
CPT/HCPCS: 36415; 71045; 80053; 81001; 83880; 84484; 85025; 87086; 93005; 93010; 94640; 96374; 96375; 99285-25; A9270

== ENCOUNTER 2023-06-06 07:32 | Inpatient (IN) | payer OTHER ==
[~2023-06-06] VITALS: Ht 175.3 cm; Wt 94.7 kg
[2023-06-06] VITALS (26 sets, daily range): BP systolic 126–248; BP diastolic 55–108
[~2023-06-06 07:32] MED LIST changes: +ALBU90OI INH; +BENZ100A PO; +PRED20 PO
[2023-06-06 08:18] LABS: BASOPHILS ABSOLUTE AUTO 0.06 K/mm3 (0.00-0.23); BASOPHILS PERCENT AUTO 1 % (0-2); EOSINOPHILS ABSOLUTE AUTO 0.25 K/mm3 (0.00-0.68); EOSINOPHILS PERCENT AUTO 2 % (0-6); Hematocrit 34.5 % (37.0-53.0); IMMATURE GRAN ABSOLUTE AUTO 0.02 K/mm3 (0.00-0.10); IMMATURE GRAN PERCENT AUTO 0 % (0-1); LYMPHOCYTES ABSOLUTE AUTO 1.87 K/mm3 (0.84-5.20); LYMPHOCYTES PERCENT AUTO 18 % (21-46); MONOCYTES ABSOLUTE AUTO 1.14 K/mm3 (0.16-1.47); MONOCYTES PERCENT AUTO 11 % (4-13); Mean Corpuscular HGB 30.1 pg (26.0-34.0); Mean Corpuscular HGB Conc 34.8 g/dL (31.5-36.5); Mean Corpuscular Volume 87 fL (80-100); Mean Platelet Volume 11.2 fL (9.1-12.4); NEUTROPHILS ABSOLUTE AUTO 6.97 K/mm3 (1.96-9.15); NEUTROPHILS PERCENT AUTO 68 % (41-73); Platelet Count 238 K/mm3 (150-400); RDW Standard Deviation 38.5 fL (35.1-46.3); Red Blood Cell Count 3.99 M/mm3 (4.30-5.90); White Blood Cell Count 10.31 K/mm3 (4.00-11.30)
[2023-06-06 08:36] LABS: Albumin, Blood 3.3 g/dL (3.4-5.0); Albumin/Globulin Ratio 0.9 (0.8-1.8); Bilirubin, Total 0.2 mg/dL (0.1-1.0); Bun/Creatinine Ratio 10.1 (12.0-20.0); Calcium, Blood 8.4 mg/dL (8.5-10.1); Creatinine, Blood 4.34 mg/dL (0.60-1.20); Globulin, Blood 3.7 g/dL (2.2-4.0); Potassium, Blood 4.9 mmol/L (3.5-5.5)
[2023-06-06] MEDS ORDERED: ATORVASTATIN CA20 MG PO (14:45)
[2023-06-06] MEDS ORDERED: SOAANZ20 M3 PO (14:45)
[2023-06-06] MEDS ORDERED: CARVEDILOL25 M9 PO (14:45)
[2023-06-06] MEDS ORDERED: NOVOLOG100 UNIT/2 (14:47)
--- NOTE | 2023-06-06 17:56 | NUR ---
ARRIVAL TO ICU/SHIFT SUMMARY PT ARRIVES TO ICU FROM ER AT 1440 FOR HYPERTENSIVE EMERGENCY. PT REPORTS RIGHT SIDED NUMBNESS AND TINGLING SINCE SATURDAY c INCREASING SEVERITY. ALSO REPORTS INTERMITTANT SPENCE. PT A&OX 4. FOLLOWS COMMANDS. ABLE TO TRANSFER TO BED BUT APPEARS TO LACK COORDINATION ON RIGHT SIDE. 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 NO FACIAL DROOP. HTN NOTED, ON NICADIPINE GTT ON ARRIVAL. CURRENTLY ON STANDBY, BP 159/74. SR, RATE 60-70'S. TOLERATED DINNER WELL. PT DENIES SMOKING HX, EDUCATION ON FIRE RISK. WILL CONTINUE TO MONITOR UNTIL REPORT TO ONCOMING NURSE.
--- NOTE | 2023-06-06 20:56 | NUR ---
ASUMPTION OF CARE/ASSESSMENT: ASSUMED CARE OF PT AT 1900. PT IS A&O X 4, PLEASANT AND COOPERATIVE WITH CARE. PT HAS ACUTE CVA CAUSING R. 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 HAND AND WEAKNESS THROUGHOUT R. LEG. WEAKNESS AFFECTING GAIT BUT PT IS STILL ABLE TO GET OUT OF BED AND AMBULATE IN ROOM WITH FWW. PT C/O DIZZINESS AND MEDICATED PER EMAR. CURRENTLY PT ON RA WITH SPO2 99<, RR 16 AND AND LUNG SOUNDS CLEAR THROUGHOUT. SR ON MONITOR WITH HR 60'S AND SBP 120-140'S; PT HAS NO CHEST PAIN AT THIS TIME AND NICARDIPINE GTT ON SB. PT HAS HYPERACTIVE BOWEL SOUNDS IN ALL QUADRANTS; ABD SOFT, NON-TENDER. PT IS TYPE 1 DIABETIC AND HAS INSULIN PUMP IN R. LOWER ABD; PT SIGNED CONSENT ABOUT MANAGING INSULIN INDEPENDENTLY. PT USING CALL LIGHT APPROPRIATELY, BED LOWERED, WILL CONTINUE TO MONITOR.
--- NOTE | 2023-06-06 21:10 | NUR ---
FIRE SAFETY CHECK: PT EDUCATED REGARDING IGNITION SOURCES AND RISK OF INJURY WHILE OXYGEN IS IN USE. PT VERBALIZES THAT HE DOES NOT HAVE ANY IGNITION SOURCES IN HIS POSSESSION AND STATES UNDERSTADING REGARDING FIRE SAFETY.
[2023-06-07] VITALS (36 sets, daily range): BP systolic 126–199; BP diastolic 60–136
--- NOTE | 2023-06-07 01:34 | NUR ---
PT UPDATE: PT CALLED THIS RN INTO ROOM AFTER WAKING UP FROM SLEEP FEELING LIKE HIS BLOOD SUGAR WAS DROPPING. CBG TAKEN AND CAME BACK AT 53; PT GIVEN 8 OZ OF ORANGE JUICE AND SOME CHEESE AND CRACKERS. PLAN TO RECHECK CBG IN 30 MINUTES.
[2023-06-07 03:41] LABS: BASOPHILS ABSOLUTE AUTO 0.03 K/mm3 (0.00-0.23); BASOPHILS PERCENT AUTO 0 % (0-2); EOSINOPHILS ABSOLUTE AUTO 0.21 K/mm3 (0.00-0.68); EOSINOPHILS PERCENT AUTO 2 % (0-6); Hematocrit 30.9 % (37.0-53.0); Hemoglobin 10.6 g/dL (13.5-17.5); IMMATURE GRAN ABSOLUTE AUTO 0.03 K/mm3 (0.00-0.10); IMMATURE GRAN PERCENT AUTO 0 % (0-1); LYMPHOCYTES ABSOLUTE AUTO 1.85 K/mm3 (0.84-5.20); LYMPHOCYTES PERCENT AUTO 16 % (21-46); MONOCYTES ABSOLUTE AUTO 1.07 K/mm3 (0.16-1.47); MONOCYTES PERCENT AUTO 9 % (4-13); Mean Corpuscular HGB Conc 34.3 g/dL (31.5-36.5); Mean Corpuscular Volume 88 fL (80-100); Mean Platelet Volume 11.3 fL (9.1-12.4); NEUTROPHILS ABSOLUTE AUTO 8.58 K/mm3 (1.96-9.15); NEUTROPHILS PERCENT AUTO 73 % (41-73); Platelet Count 218 K/mm3 (150-400); RDW Coefficient Variation 12.3 % (11.7-14.2); RDW Standard Deviation 39.4 fL (35.1-46.3); Red Blood Cell Count 3.53 M/mm3 (4.30-5.90); White Blood Cell Count 11.77 K/mm3 (4.00-11.30)
[2023-06-07 05:54] LABS: Bun/Creatinine Ratio 10.9 (12.0-20.0); Calcium, Blood 7.8 mg/dL (8.5-10.1); Creatinine, Blood 4.7 mg/dL (0.60-1.20); Potassium, Blood 4.7 mmol/L (3.5-5.5)
--- NOTE | 2023-06-07 07:15 | NUR ---
ASSUMPTION OF CARE PT IS ALERT AND ORIENTED WITH PLEASANT AFFECT. PT C/O DIZZINESS AND R SIDED WEAKNESS. HE EXPLAINS R SIDE "FEELS HEAVY". PT ABLE TO MOVE ALL EXTREMITIES. NSR ON MONITOR. SBP 160S-180S. PT WORKED WITH PT/OT. SEE SHIFT ASSESSMENT.
--- NOTE | 2023-06-07 15:05 | NUR ---
UPDATE PT REMAINS ALERT AND ORIENTED. HE CONTINUES TO HAVE R SIDED WEAKNESS THAT FEELS UNCHANGED SINCE PREVIOUS ASSESSMENT. PT COMPLETES ADLS INDEPENDENTLY. NSR ON MONITOR WITH RATE IN 60S. SBP 160S-180S. PT REPORTS DIZZINESS HAS SUBSIDED.
--- NOTE | 2023-06-07 18:05 | NUR ---
SHIFT SUMMARY ASSUMED CARE AT 1530. STATUS CHANGED TO MED s TELE. PT RESTING IN BED. INDEPENDENT. CONTINUES TO REPORT NUMBNESS TO RIGHT SIDE. ABLE TO MOVE INDEPENDENTLY IN ROOM, FEED SELF, COMPLETE ADLS. BP STABLE. DENIES NEEDS. WILL CONTINUE TO MONITOR UNTIL REPORT TO ONCOMING NURSE.
--- NOTE | 2023-06-07 19:47 | NUR ---
ASSUMED CARE OF PT AT 1900. REPORT RECEIVED. PT PRESENTS IN BED. ALERT AND ORIENTED. PLEASANT AND COOPERATIVE WITH CARE AND ASSESSMENT. DENIES COMPLAINTS OF PAIN OR N/V. PT STATES THAT THE NUMBNESS AND HEAVINESS OF RIGHT SIDE HAS REMAINED UNCHANGED THROUGHOUT THE DAY. WEB ARCHITECT ARE WEAKER ON RIGHT SIDE. PUSH/ PULL OF FEET AGAIN REVEAL WEAKNESS TO THE RIGHT SIDE. PT REMAINS INDEPENDENT IN BED AND ROOM. DOES AGREE TO CALL IF HE NEEDS ANY ASSIST. NO S/S IGNITION SOURCE IN ROOM. PT REMAINS ON ROOM AIR. WILL REVIEW CHART AND PLAN OF CARE FOR THIS PT.
--- NOTE | 2023-06-07 19:59 | NUR ---
PT CHART REVIEWED FOR TRANSFER
--- NOTE | 2023-06-07 21:37 | NUR ---
REPORT CALLED. REPORT DONE IN SBAR FASHION. ALLOWED FOR QUESTIONS
--- NOTE | 2023-06-07 22:15 | NUR ---
ADMIT NOTE PT ARRIVED TO FLOOR VIA WC. PT ORIENTED TO UNIT. PERSONAL POSSESSIONS WITH PT. PT HAS AN INSULIN PUMP IN PLACE. PAPERWORK FOR INSULIN PUMP IS SIGNED BY PT AND IN HARDCOPY CHART. BED ALARM ACTIVE. CALL BUTTON WITHIN REACH.
--- NOTE | 2023-06-08 02:28 | NUR ---
CALLED HOSPITALIST PT IS CONTINUOUSLY EXERCISING HIS RIGHT ARM. HE HAS NOT SLEPT. HE STATES HE IS ANXIOUS AND RESTLESS. HE APPEARS EXTREMELY ANXIOUS. HE REQUESTS I CALL THE HOSPITALIST. SNACKS AND JUICE GIVEN. NEW MEDICATION ORDERED AND GIVEN. WILL CONTINUE TO MONITOR.
[2023-06-08 03:54] VITALS: BP 163/62
--- NOTE | 2023-06-08 04:17 | NUR ---
SHIFT SUMMARY ADMITTED FOR HTN/RIGHT SIDED WEAKNESS. FULL CODE. FOUND TO HAVE AN ACUTE LEFT PONTINE CVA. RIGHT SIDED WEAKNESS. TRANSFERED FROM ICU TO MED FLOOR THIS SHIFT. PHYSICAL & OCCUPATIONAL THERAPIES ARE ASSISTING. DM 1, WITH INSULIN PUMP. RENAL DIET DUE TO CKD4 HX. ACHS CBG'S. PLAVIX IS SCHEDULED. HE IS A&O X4. STANDBY ASSIST - BRP. ANXIETY & SLEEPLESSNESS NOTED THIS SHIFT, MEDICATED PER EMAR. PT IS ABLE TO TELL WHEN HIS GLUCOSE IS LOW, SNACKS HAVE SUCCESSFULLY CORRECTED THIS ISSUE.
[2023-06-08 05:50] LABS: BASOPHILS ABSOLUTE AUTO 0.05 K/mm3 (0.00-0.23); BASOPHILS PERCENT AUTO 0 % (0-2); EOSINOPHILS ABSOLUTE AUTO 0.27 K/mm3 (0.00-0.68); EOSINOPHILS PERCENT AUTO 2 % (0-6); Hematocrit 34.3 % (37.0-53.0); Hemoglobin 11.5 g/dL (13.5-17.5); IMMATURE GRAN ABSOLUTE AUTO 0.04 K/mm3 (0.00-0.10); IMMATURE GRAN PERCENT AUTO 0 % (0-1); LYMPHOCYTES ABSOLUTE AUTO 2.26 K/mm3 (0.84-5.20); LYMPHOCYTES PERCENT AUTO 17 % (21-46); MONOCYTES ABSOLUTE AUTO 1.05 K/mm3 (0.16-1.47); MONOCYTES PERCENT AUTO 8 % (4-13); Mean Corpuscular HGB 29.6 pg (26.0-34.0); Mean Corpuscular HGB Conc 33.5 g/dL (31.5-36.5); Mean Corpuscular Volume 88 fL (80-100); Mean Platelet Volume 11.5 fL (9.1-12.4); NEUTROPHILS PERCENT AUTO 73 % (41-73); Platelet Count 247 K/mm3 (150-400); RDW Coefficient Variation 12.3 % (11.7-14.2); RDW Standard Deviation 39.4 fL (35.1-46.3); Red Blood Cell Count 3.88 M/mm3 (4.30-5.90); White Blood Cell Count 13.67 K/mm3 (4.00-11.30)
[2023-06-08 06:38] LABS: Albumin/Globulin Ratio 0.8 (0.8-1.8); Bilirubin, Total 0.3 mg/dL (0.1-1.0); Bun/Creatinine Ratio 10.2 (12.0-20.0); Calcium, Blood 7.6 mg/dL (8.5-10.1); Creatinine, Blood 5.11 mg/dL (0.60-1.20); Globulin, Blood 3.7 g/dL (2.2-4.0); Total Protein, Blood 6.7 g/dL (6.4-8.2)
[2023-06-08 07:17] VITALS: BP 174/81
--- NOTE | 2023-06-08 14:51 | NUR ---
SHIFT SUMMARY PT WOKE FOR BS REPORT THIS AM. PER REPORT, PT GIVEN ATIVAN FOR ANXIETY ON NOC SHIFT. PT UP TO EOB FOR MEALS AND ABLE TO WORK WITH THERAPY THIS AM. PT ABLE TO AMBULATE IN HALLS WELL. PT SHOWING SOME R SIDE WEAKNESS IN EXTREMITIES, BUT ABLE TO USE ARM, HAND AND LEG NEEDED. UP WITH SBA TO BTHRM. PT ADMITTED FOR HYPERTENSIVE EMERGENCY; BP MEDS GIVEN. HX OF HTN, CHF, CKD STAGE 4, AND DM TYPE I. PT WITH INSULIN PUMP AND ABLE TO GIVE OWN INSULIN PER CBG. PT WORKING AND FLEXING R HAND AND ARM IN BED ALL MORNING AND AFTERNOON, ON HIS OWN. PT LATER MEDICATED THIS AFTERNOON FOR C/O PAIN TO R SHOULDER. PT RESTING QUIETLY AT THIS TIME, WITH EYES CLOSED. NO FURTHER S/SX'S OF DISTRESS NOTED AT THIS TIME. CALL LT IN REACH. ABLE TO MAKE NEEDS KNOWN.
[2023-06-08 15:19] VITALS: BP 129/66
[2023-06-08 19:37] VITALS: BP 172/74
[2023-06-09 05:17] VITALS: BP 143/67
[2023-06-09 05:56] LABS: BASOPHILS ABSOLUTE AUTO 0.05 K/mm3 (0.00-0.23); BASOPHILS PERCENT AUTO 1 % (0-2); EOSINOPHILS ABSOLUTE AUTO 0.23 K/mm3 (0.00-0.68); EOSINOPHILS PERCENT AUTO 2 % (0-6); Hematocrit 30.5 % (37.0-53.0); Hemoglobin 10.5 g/dL (13.5-17.5); IMMATURE GRAN ABSOLUTE AUTO 0.02 K/mm3 (0.00-0.10); IMMATURE GRAN PERCENT AUTO 0 % (0-1); LYMPHOCYTES PERCENT AUTO 23 % (21-46); MONOCYTES ABSOLUTE AUTO 1.08 K/mm3 (0.16-1.47); MONOCYTES PERCENT AUTO 11 % (4-13); Mean Corpuscular HGB 29.9 pg (26.0-34.0); Mean Corpuscular HGB Conc 34.4 g/dL (31.5-36.5); Mean Corpuscular Volume 87 fL (80-100); Mean Platelet Volume 11.4 fL (9.1-12.4); NEUTROPHILS ABSOLUTE AUTO 5.86 K/mm3 (1.96-9.15); NEUTROPHILS PERCENT AUTO 62 % (41-73); Platelet Count 221 K/mm3 (150-400); RDW Coefficient Variation 11.9 % (11.7-14.2); RDW Standard Deviation 38.1 fL (35.1-46.3); Red Blood Cell Count 3.51 M/mm3 (4.30-5.90); White Blood Cell Count 9.44 K/mm3 (4.00-11.30)
--- NOTE | 2023-06-09 06:26 | NUR ---
SHIFT SUMMARY PT C/O R SHOULDER PAIN WHICH IMPROVED WITH PRN TYLENOL ADMINISTRATION. PT HOWEVER HAD DIFFICULTY FALLING ASLEEP. MATTHEW BARAKAT NOTIFIED AND ONE TIME ORDER OF MELATONIN GIVEN. INSTRUCTED THAT IF INEFFECTIVE AFTER 1 HOUR, PT COULD HAVE 7.5MG TEMAZEPAM. PT STILL UNABLE TO SLEEP AFTER MELATONIN. ONE TIME ORDER OF TEMAZEPAM PLACED AND GIVEN TO PT WITH DESIRED EFFECT ACHEIVED. PT SLEPT THE REMAINDED OF NIGHT WITH NO COMPLAINTS. Q1H FIRE SAFETY CHECKS COMPLETED WITH NO SOURCES OF IGNITION FOUND.
[2023-06-09 06:47] LABS: Albumin, Blood 2.8 g/dL (3.4-5.0); Albumin/Globulin Ratio 0.9 (0.8-1.8); Bilirubin, Total 0.3 mg/dL (0.1-1.0); Bun/Creatinine Ratio 11.3 (12.0-20.0); Calcium, Blood 7.4 mg/dL (8.5-10.1); Creatinine, Blood 5.67 mg/dL (0.60-1.20); Globulin, Blood 3.2 g/dL (2.2-4.0); Potassium, Blood 4.8 mmol/L (3.5-5.5)
[2023-06-09 07:12] VITALS: BP 159/80
[2023-06-09] MEDS ORDERED: ASPI81CH PO (10:35)
[2023-06-09] MEDS ORDERED: HYDRA25 PO (10:35)
[2023-06-09] MEDS ORDERED: CLOP75 PO (10:36)
[2023-06-09] MEDS ORDERED: NIFE60ER PO (10:36)
[2023-06-09 15:02] VITALS: BP 132/67
--- NOTE | 2023-06-09 16:05 | NUR ---
SHIFT SUMMARY PT RESTING QUIETLY AT START OF SHIFT. WOKE EASILY FOR CARE. REPORTED GETTING SOMETHING FOR SLEEP LATE LAST NIGHT, WHICH DID HELP HIM GET SOME REST. PT IS UP TO BTHRM WITH 1P SBA USING FWW. PT IS WEAK ON R SIDE AND A LITTLE UNSTEADY WHEN FIST GETTING UP. DID NOT C/O PAIN TO R SHOULDER TODAY HE DID YESTERDAY. PT DID C/O DIZZINESS IN AFTERNOON; MEDICATED PER EMAR. FAMILY IN TO VISIT FOR A WHILE. PT AWAKE TALKING ON PHONE OFF AND ON. DENIED FURTHER NEEDS. PT WAITING TO BE D/C'D TO REHAB WHEN ARRANGEMENTS MADE; POSSIBLY TOMORROW OR TUES, PER DR GARZA. CALL LT IN REACH.
[2023-06-09 19:58] VITALS: BP 145/108
[2023-06-09 21:26] LABS: Bun/Creatinine Ratio 12.3 (12.0-20.0); Calcium, Blood 7.4 mg/dL (8.5-10.1); Creatinine, Blood 5.44 mg/dL (0.60-1.20)
[2023-06-10 01:43] VITALS: BP 125/62
--- NOTE | 2023-06-10 05:25 | NUR ---
SHIFT SUMMARY NO ACUTE CHANGES NOTED DURING SHIFT. PT ALERT AND ORIENTED, CALLS APPROPRIATELY. PT REMAINS ON RA, SBA WITH FWW TO BATHROOM. FLUIDS STARTED PER RENAL. PENDING 24HR URINE COLLECTION. PLANS TO D/C TO FACILITY ONCE MEDICALLY CLEARED. WILL CONTINUE TO MONITOR. CALL LIGHT WITHIN REACH.
[2023-06-10 06:14] LABS: BASOPHILS ABSOLUTE AUTO 0.04 K/mm3 (0.00-0.23); BASOPHILS PERCENT AUTO 0 % (0-2); EOSINOPHILS ABSOLUTE AUTO 0.18 K/mm3 (0.00-0.68); EOSINOPHILS PERCENT AUTO 2 % (0-6); Hematocrit 32.6 % (37.0-53.0); Hemoglobin 11.2 g/dL (13.5-17.5); IMMATURE GRAN ABSOLUTE AUTO 0.05 K/mm3 (0.00-0.10); IMMATURE GRAN PERCENT AUTO 0 % (0-1); LYMPHOCYTES ABSOLUTE AUTO 1.78 K/mm3 (0.84-5.20); LYMPHOCYTES PERCENT AUTO 14 % (21-46); MONOCYTES ABSOLUTE AUTO 1.08 K/mm3 (0.16-1.47); MONOCYTES PERCENT AUTO 9 % (4-13); Mean Corpuscular HGB 29.6 pg (26.0-34.0); Mean Corpuscular HGB Conc 34.4 g/dL (31.5-36.5); Mean Corpuscular Volume 86 fL (80-100); Mean Platelet Volume 10.9 fL (9.1-12.4); NEUTROPHILS ABSOLUTE AUTO 9.23 K/mm3 (1.96-9.15); NEUTROPHILS PERCENT AUTO 75 % (41-73); Platelet Count 259 K/mm3 (150-400); RDW Standard Deviation 38.2 fL (35.1-46.3); Red Blood Cell Count 3.78 M/mm3 (4.30-5.90); White Blood Cell Count 12.36 K/mm3 (4.00-11.30)
[2023-06-10 08:03] VITALS: BP 166/70
[2023-06-10 11:47] LABS: Magnesium, Blood 1.6 mg/dL (1.6-2.4); Uric Acid, Blood 9.2 mg/dL (3.5-7.2)
[2023-06-10 11:48] LABS: Albumin, Blood 3.4 g/dL (3.4-5.0); Bilirubin, Total 0.2 mg/dL (0.1-1.0); Bun/Creatinine Ratio 11.1 (12.0-20.0); Calcium, Blood 7.8 mg/dL (8.5-10.1); Creatinine, Blood 5.76 mg/dL (0.60-1.20); Globulin, Blood 3.5 g/dL (2.2-4.0); Phosphorus, Blood 5.8 mg/dL (2.5-4.9); Potassium, Blood 5.6 mmol/L (3.5-5.5); Total Protein, Blood 6.9 g/dL (6.4-8.2)
[2023-06-10 13:46] VITALS: BP 130/47
[2023-06-10 17:08] VITALS: BP 134/50
--- NOTE | 2023-06-10 17:50 | NUR ---
PT AOX4 AND COOPERATIVE OF CARE. CONTINUES TO HAVE R SIDED WEAKNESS AND IS WORKING HARD WITH PHYSICAL THERAPY AND OT ON THIS. PT CONTINUES TO HAVE SOME LOOSE STOOL AND HAS BEEN TREATED PER EMAR. CALL LIGHT IS WITHIN REACH WILL CONTINUE TO MONITOR.
--- NOTE | 2023-06-10 17:52 | NUR ---
PT HAS BEEN INSTRUCTED AT HOURLY ROUNDINGS ABOUT HAZARD OF INGITION ITEMS IN ROOMS WITH O2 RUNNING. PT HAS VERBALIZED UNDERSTANDING.
[2023-06-10 20:38] VITALS: BP 151/60
--- NOTE | 2023-06-11 03:21 | NUR ---
FIRE SAFETY PATIENT EDUCATED ON HOURLY ROUNDING FOR FIRE SAFETY AND RISK OF INJURY WHILE OXYGEN IN USE. PATIENT VERBALIZED UNDERSTANDING, DENIES SMOKING NOR HAVING ANY IGNITION SOURCES.
[2023-06-11 04:31] VITALS: BP 166/73
--- NOTE | 2023-06-11 05:19 | NUR ---
SHIFT SUMMARY PATIENT A/0X4, PLEASANT, COOPERATIVE. NO C/O PAIN NOR DISCOMFORT STATED THIS SHIFT. 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 NOTED IMPROVED STRENGTH IN RLE, PERFORMED FULL ROM, MAINTAINED GOOD CONTROL OF RLE, NO DRIFTING OBSERVED, GOOD MUSCLE TONE. AT 0420 PATINET C/O FEELING SYMPTOMATIC OF LOW BG, WAS 49. MD NOTIFIED, ADMINISTER ROUTINE INTERVENTIONS AND RE-CHECK IN 1/2HR, RETURNED TO BASELINE, 104, PATINET STATES FEELING MUCH BETTER, NO FURTHER S/SX OF HYPOGLYCEMIA AT THIS TIME. PATIENT APPEARES TO BE RESTING IN BED AT THIS TIME IN NO ACUTE DISTRESS. BED LOW, CALL LIGHT WITHIN REACH.
[2023-06-11 06:42] LABS: Albumin, Blood 2.9 g/dL (3.4-5.0); Anion Gap 8 mmol/L (6-16); Blood Urea Nitrogen 70 mg/dL (8-24); Bun/Creatinine Ratio 12.3 (12.0-20.0); CO2, Blood 19 mmol/L (21-32); Calcium, Blood 7.5 mg/dL (8.5-10.1); Chloride, Blood 114 mmol/L (98-108); Creatinine, Blood 5.69 mg/dL (0.60-1.20); Glomerular Filtration Rate 12 (60-); Glucose, Blood 146 mg/dL (70-99); Phosphorus, Blood 7.1 mg/dL (2.5-4.9); Potassium, Blood 5.1 mmol/L (3.5-5.5); Sodium, Blood 141 mmol/L (136-145)
[2023-06-11 07:26] VITALS: BP 154/62
[2023-06-11 08:58] LABS: Protein, Urine Quantitative 98.7 mg/dL (0.0-11.9)
[2023-06-11 14:21] VITALS: BP 135/62
[2023-06-11 19:11] VITALS: BP 144/70
--- NOTE | 2023-06-11 19:41 | NUR ---
SHIFT SUMMARY: PT A/O X 4, IND IN ROOM AT THIS TIME. PT CONTINUES TO HAVE NUMBNESS TO R SIDE FINGERS AND FOOT. PT PAIN MANAGED TODAY WITH TYLENOL. PT STARTED RENVELA WITH DINNER AND TOLERATED WELL.
--- NOTE | 2023-06-12 03:13 | NUR ---
SHIFT SUMMARY NOC PT A/O X 4. PLEASANT AND COOPERATIVE WITH CARE. PT REPORTS RANGE OF MOTION AND STRENGTH ARE IMPROVING IN R SIDE AFTER RECENT CVA. PT IS WORKING WITH NEPRHROLOGIST WHO FOLLOWS HIS CASE FOR FOLLOW UP FOR ESRD. PT MAY DISCHARGE TO SNF IN [place] TOMORROW. PT IS CURRENTLY RESTING WITH BED IN LOWEST POSITION, AND CALL LIGHT WITHIN REACH.
[2023-06-12 05:08] VITALS: BP 159/68
[2023-06-12 05:55] LABS: Albumin, Blood 2.9 g/dL (3.4-5.0); Anion Gap 8 mmol/L (6-16); Blood Urea Nitrogen 69 mg/dL (8-24); Bun/Creatinine Ratio 12.5 (12.0-20.0); CO2, Blood 18 mmol/L (21-32); Calcium, Blood 7.7 mg/dL (8.5-10.1); Chloride, Blood 116 mmol/L (98-108); Glomerular Filtration Rate 12 (60-); Glucose, Blood 69 mg/dL (70-99); Phosphorus, Blood 7.2 mg/dL (2.5-4.9); Potassium, Blood 4.8 mmol/L (3.5-5.5); Sodium, Blood 142 mmol/L (136-145)
--- NOTE | 2023-06-12 05:56 | NUR ---
PT EDUCATED ON [facility] IGNITION/EXPLOSIVES NON SMOKING SAFETY POLICY.
[2023-06-12 07:40] VITALS: BP 171/65
--- NOTE | 2023-06-12 09:48 | NUR ---
LOW BLOOD SUGAR PT CALLED AT 0735 STATING HE THOUGHT HIS BLOOD SUGAR WAS LOW. PT PALE, CLAMMY. HE REQUESTED JUICE WITH SUGAR. STAT CBG DONE IT WAS 47. HE DRANK THE JUICE . RE CHECKED CBG AY 0809 CBG 62. BREAKFAST BROUGHT TO HIM. HE ATE 100%. HE MENTIUONED THAT HIS FASTING BLOOD SUGAR YESTERDAY WAS LOW TOO. HE HELD THE INSULIN PUMP FOR 1 HOUR. THEN DECREASED THE BASELL RATE TO 1.1 U/HR. CONTINUE POC.
[2023-06-12 12:07] LABS: IMMUNOGLOBULIN A, QN, SERUM 152 mg/dL (90-386); IMMUNOGLOBULIN G, QN, SERUM 1116 mg/dL (603-1613); IMMUNOGLOBULIN M, QN, SERUM 146 mg/dL (20-172)
--- NOTE | 2023-06-12 12:52 | NUR ---
REPORT REPORT CALLED TO JIHAN AT [phone]. CONTINUE POC.
[2023-06-13 12:11] LABS: ANTIMYELOPEROXIDASE (MPO) ABS <0.2 units (0.0-0.9); ANTIPROTEINASE 3 (PR-3) ABS <0.2 units (0.0-0.9); ATYPICAL PANCA <1:20 titer (Neg:<1:20); CYTOPLASMIC (C-ANCA) <1:20 titer (Neg:<1:20); PERINUCLEAR (P-ANCA) <1:20 titer (Neg:<1:20)
[2023-06-13 22:06] LABS: METANEPH/CREAT RATIO 0.4 (0.0-1.0)
== END 2023-06-12 13:41 | DRG 65 ==
LOC: ER 07:32 → PCU 07:33 → ICUE 14:28 → MEDS 06-07 22:01 → ENPENDDIS 06-12 10:38 → MEDS 06-12 13:41
PROVIDERS: Emergency Medicine; Hospitalist; Internal Medicine; Internal Medicine Nephrology; ADMIT Family Medicine
DX: I63.89 Other cerebral infarction (principal); E87.20 Acidosis, unspecified; G81.91 Hemiplegia, unspecified affecting right dominant side; I16.1 Hypertensive emergency; I50.32 Chronic diastolic (congestive) heart failure; N17.9 Acute kidney failure, unspecified; I13.0 Hypertensive heart and chronic kidney disease with heart failure and stage 1 through stage 4 chronic kidney disease, or unspecified chronic kidney disease; N18.4 Chronic kidney disease, stage 4 (severe); I25.10 Atherosclerotic heart disease of native coronary artery without angina pectoris; E10.42 Type 1 diabetes mellitus with diabetic polyneuropathy; E10.319 Type 1 diabetes mellitus with unspecified diabetic retinopathy without macular edema; E86.9 Volume depletion, unspecified; E88.09 Other disorders of plasma-protein metabolism, not elsewhere classified; H11.32 Conjunctival hemorrhage, left eye; E20.8 Other hypoparathyroidism; D63.1 Anemia in chronic kidney disease; I16.0 Hypertensive urgency; E10.22 Type 1 diabetes mellitus with diabetic chronic kidney disease; E87.5 Hyperkalemia; I25.2 Old myocardial infarction; Z79.811 Long term (current) use of aromatase inhibitors; Z79.4 Long term (current) use of insulin; Z79.51 Long term (current) use of inhaled steroids; Z79.899 Other long term (current) drug therapy; Z90.49 Acquired absence of other specified parts of digestive tract; Z98.890 Other specified postprocedural states; Z87.891 Personal history of nicotine dependence
CPT/HCPCS: 36415; 70450; 70544; 70551; 76770; 80048; 80053; 80069; 81050; 82550; 82570; 82947; 83516; 83520; 83735; 83835; 84100; 84156; 84484; 84550; 85025; 86037; 86038; 86334; 93005; 93010; 93975; 96365; 96366; 96375; 96376; 97110; 97110-CQ; 97112; 97116; 97116-CQ; 97161; 97166; 97530; 97530-CQ; 97535; 99285-25; A9270; G0378; J2060; J2405; J7050

== ENCOUNTER → 2023-07-12 | Outpatient (CLI) | payer OTHER ==
[~2023-07-12] MED LIST changes: +ASPI81CH PO; +ATORVASTATIN CA20 MG PO; +CALC.25 PO; +CARVEDILOL25 M9 PO; +CLOP75 PO; +HYDRA25 PO; +MECL25 PO; +NIFE60ER PO; +NOVOLOG100 UNIT/2; +SEVEC800 PO; +SOAANZ20 M3 PO
[2023-07-12 19:02] LABS: BASOPHILS ABSOLUTE AUTO 0.04 K/mm3 (0.00-0.23); BASOPHILS PERCENT AUTO 0 % (0-2); EOSINOPHILS ABSOLUTE AUTO 0.09 K/mm3 (0.00-0.68); EOSINOPHILS PERCENT AUTO 1 % (0-6); Hematocrit 32.3 % (37.0-53.0); Hemoglobin 11.3 g/dL (13.5-17.5); IMMATURE GRAN ABSOLUTE AUTO 0.02 K/mm3 (0.00-0.10); IMMATURE GRAN PERCENT AUTO 0 % (0-1); LYMPHOCYTES ABSOLUTE AUTO 1.27 K/mm3 (0.84-5.20); LYMPHOCYTES PERCENT AUTO 13 % (21-46); MONOCYTES ABSOLUTE AUTO 0.91 K/mm3 (0.16-1.47); MONOCYTES PERCENT AUTO 10 % (4-13); Mean Corpuscular HGB 30.1 pg (26.0-34.0); Mean Corpuscular Volume 86 fL (80-100); Mean Platelet Volume 11.7 fL (9.1-12.4); NEUTROPHILS ABSOLUTE AUTO 7.14 K/mm3 (1.96-9.15); NEUTROPHILS PERCENT AUTO 75 % (41-73); Platelet Count 159 K/mm3 (150-400); RDW Coefficient Variation 11.6 % (11.7-14.2); RDW Standard Deviation 36.3 fL (35.1-46.3); Red Blood Cell Count 3.76 M/mm3 (4.30-5.90); White Blood Cell Count 9.47 K/mm3 (4.00-11.30)
[2023-07-12 19:16] LABS: Prothrombin Time Results 10.5 Sec (9.7-11.5)
[2023-07-12 19:18] LABS: Albumin, Blood 4.3 g/dL (3.4-5.0); Anion Gap 7 mmol/L (6-16); Blood Urea Nitrogen 88 mg/dL (8-24); Bun/Creatinine Ratio 17.2 (12.0-20.0); CO2, Blood 21 mmol/L (21-32); Calcium, Blood 9.1 mg/dL (8.5-10.1); Chloride, Blood 107 mmol/L (98-108); Creatinine, Blood 5.13 mg/dL (0.60-1.20); Glomerular Filtration Rate 13 (60-); Glucose, Blood 169 mg/dL (70-99); Phosphorus, Blood 4.7 mg/dL (2.5-4.9); Sodium, Blood 135 mmol/L (136-145)
== END ==
LOC: LAB 15:45 → LAB SHORT 15:45
PROVIDERS: Family Medicine
DX: Z11.59 Encounter for screening for other viral diseases (principal); E10.22 Type 1 diabetes mellitus with diabetic chronic kidney disease; E10.59 Type 1 diabetes mellitus with other circulatory complications; E10.39 Type 1 diabetes mellitus with other diabetic ophthalmic complication; E10.65 Type 1 diabetes mellitus with hyperglycemia; E10.42 Type 1 diabetes mellitus with diabetic polyneuropathy; N18.5 Chronic kidney disease, stage 5
CPT/HCPCS: 80069; 83036; 85025; 85610

== ENCOUNTER 2023-07-17 12:31 | Day surgery (SDC) | payer OTHER ==
[~2023-07-17] VITALS: Ht 175.3 cm; Wt 90.7 kg
[~2023-07-17 12:31] MED LIST changes: -CALC.25 PO; -MECL25 PO
[2023-07-17 12:50] VITALS: BP 198/85
[2023-07-17] MEDS ORDERED: CALC.25 PO (12:53)
[2023-07-17] MEDS ORDERED: MECL25 PO (12:55)
[2023-07-17 13:00] VITALS: BP 195/84
[2023-07-17 13:29] VITALS: BP 195/84
--- NOTE | 2023-07-17 15:30 | NUR ---
PT BACK TO RECOVERY ROOM VIA RECLINER AFTER PROCEDURE. AWAKE AND ALERT, DENIES ANY PAIN OR DISCOMFORT. VSS, PO FLUIDS GIVEN PER REQUEST.
[2023-07-17 15:35] VITALS: BP 158/68
[2023-07-17 15:45] VITALS: BP 154/68
--- NOTE | 2023-07-17 16:15 | NUR ---
IV DC'D, CATH INTACT. PT GIVEN DC INSTRUCTIONS, VERBALIZED UNDERSTANDING. OUT TO CAR VIA WHEELCHAIR, ACCOMPANIED BY SON.
== END 2023-07-17 16:10 | disposition home or self-care (01) ==
LOC: MHTC 12:31
DX: I12.0 Hypertensive chronic kidney disease with stage 5 chronic kidney disease or end stage renal disease (principal); N18.6 End stage renal disease; Z86.73 Personal history of transient ischemic attack (TIA), and cerebral infarction without residual deficits; E10.22 Type 1 diabetes mellitus with diabetic chronic kidney disease; I25.10 Atherosclerotic heart disease of native coronary artery without angina pectoris; E10.42 Type 1 diabetes mellitus with diabetic polyneuropathy; Z87.891 Personal history of nicotine dependence
CPT/HCPCS: 36558; 76937; 77001; 99152; 99153; C1750; C1769; C1894; J0360; J1644; J2250; J3010; J7040; J7050

== ENCOUNTER 2024-10-26 16:42 | Emergency (ER) | payer OTHER ==
[~2024-10-26] VITALS: Ht 170.2 cm; Wt 94.1 kg
[~2024-10-26 16:42] MED LIST changes: +CALC.25 PO; +MECL25 PO
[2024-10-26 18:42] LABS: BASOPHILS ABSOLUTE AUTO 0.06 K/mm3 (0.00-0.23); BASOPHILS PERCENT AUTO 0 % (0-2); EOSINOPHILS ABSOLUTE AUTO 0.05 K/mm3 (0.00-0.68); EOSINOPHILS PERCENT AUTO 0 % (0-6); Hematocrit 29.3 % (37.0-53.0); Hemoglobin 10.1 g/dL (13.5-17.5); IMMATURE GRAN ABSOLUTE AUTO 0.11 K/mm3 (0.00-0.10); IMMATURE GRAN PERCENT AUTO 1 % (0-1); LYMPHOCYTES ABSOLUTE AUTO 1.14 K/mm3 (0.84-5.20); LYMPHOCYTES PERCENT AUTO 5 % (21-46); MONOCYTES PERCENT AUTO 9 % (4-13); Mean Corpuscular HGB 30.9 pg (26.0-34.0); Mean Corpuscular HGB Conc 34.5 g/dL (31.5-36.5); Mean Corpuscular Volume 90 fL (80-100); Mean Platelet Volume 10.4 fL (9.1-12.4); NEUTROPHILS ABSOLUTE AUTO 19.11 K/mm3 (1.96-9.15); NEUTROPHILS PERCENT AUTO 85 % (41-73); Platelet Count 237 K/mm3 (150-400); RDW Coefficient Variation 12.7 % (11.7-14.2); RDW Standard Deviation 41.8 fL (35.1-46.3); Red Blood Cell Count 3.27 M/mm3 (4.30-5.90); White Blood Cell Count 22.37 K/mm3 (4.00-11.30)
[2024-10-26] MEDS ORDERED: Acetaminophen 500 MG Tab PO ONE (18:55)
[2024-10-26] MEDS ORDERED: FentaNYL Citrate 50 MCG/ML 2 ML Injection IV ONE (19:00)
[2024-10-26 19:09] LABS: Albumin, Blood 3.6 g/dL (3.4-5.0); Bilirubin, Total 0.5 mg/dL (0.1-1.0); Bun/Creatinine Ratio 5.9 (12.0-20.0); Calcium, Blood 8.2 mg/dL (8.5-10.1); Creatinine, Blood 7.1 mg/dL (0.60-1.20); Globulin, Blood 3.6 g/dL (2.2-4.0); Potassium, Blood 4.4 mmol/L (3.5-5.5); Total Protein, Blood 7.2 g/dL (6.4-8.2)
[2024-10-26 20:13] LABS: Influenza A, PCR NEGATIVE (NEGATIVE); Influenza B, PCR NEGATIVE (NEGATIVE); Resp Syncytial Virus, PCR NEGATIVE (NEGATIVE); SARS-Cov-2 (COVID-19) PCR, MMC NEGATIVE (NEGATIVE)
[2024-10-26] MEDS ORDERED: Piperacillin/Tazobactam Sod 3.375 GM in NS 100 ML IV ONE (20:25)
[2024-10-26] MEDS ORDERED: AMOCLA875 PO (20:31)
[2024-10-26 20:35] VITALS: BP 175/59
== END 2024-10-26 20:55 | disposition home or self-care (01) ==
LOC: ER 16:42
PROVIDERS: Emergency Medicine; Physician Assistant
DX: A41.9 Sepsis, unspecified organism (principal); J18.9 Pneumonia, unspecified organism; I13.0 Hypertensive heart and chronic kidney disease with heart failure and stage 1 through stage 4 chronic kidney disease, or unspecified chronic kidney disease; E11.22 Type 2 diabetes mellitus with diabetic chronic kidney disease; I50.32 Chronic diastolic (congestive) heart failure; N18.4 Chronic kidney disease, stage 4 (severe); I25.2 Old myocardial infarction; Z11.52 Encounter for screening for COVID-19; Z79.4 Long term (current) use of insulin; Z79.82 Long term (current) use of aspirin; Z79.899 Other long term (current) drug therapy
CPT/HCPCS: 0241U; 36415; 71046; 80053; 83605; 84145; 85025; 87040; 96365; 96375; 99285-25; A9270; J2543; J3010

== ENCOUNTER 2024-10-28 10:40 | Inpatient (IN) | payer OTHER ==
[2024-10-28] VITALS (16 sets, daily range): BP systolic 100–199; BP diastolic 45–85
[~2024-10-28] VITALS: Ht 170.2 cm; Wt 92.8 kg
[2024-10-28 11:28] LABS: BASOPHILS ABSOLUTE AUTO 0.08 K/mm3 (0.00-0.23); BASOPHILS PERCENT AUTO 0 % (0-2); EOSINOPHILS ABSOLUTE AUTO 0.14 K/mm3 (0.00-0.68); EOSINOPHILS PERCENT AUTO 1 % (0-6); Hematocrit 28.2 % (37.0-53.0); Hemoglobin 9.4 g/dL (13.5-17.5); IMMATURE GRAN ABSOLUTE AUTO 0.13 K/mm3 (0.00-0.10); IMMATURE GRAN PERCENT AUTO 1 % (0-1); LYMPHOCYTES PERCENT AUTO 6 % (21-46); MONOCYTES ABSOLUTE AUTO 1.49 K/mm3 (0.16-1.47); MONOCYTES PERCENT AUTO 8 % (4-13); Mean Corpuscular HGB 30.6 pg (26.0-34.0); Mean Corpuscular HGB Conc 33.3 g/dL (31.5-36.5); Mean Corpuscular Volume 92 fL (80-100); Mean Platelet Volume 10.9 fL (9.1-12.4); NEUTROPHILS ABSOLUTE AUTO 16.47 K/mm3 (1.96-9.15); NEUTROPHILS PERCENT AUTO 85 % (41-73); Platelet Count 214 K/mm3 (150-400); RDW Standard Deviation 43.7 fL (35.1-46.3); Red Blood Cell Count 3.07 M/mm3 (4.30-5.90); White Blood Cell Count 19.41 K/mm3 (4.00-11.30)
[2024-10-28 11:53] LABS: Magnesium, Blood 2.1 mg/dL (1.6-2.4)
[2024-10-28 11:56] LABS: Albumin, Blood 3.4 g/dL (3.4-5.0); Albumin/Globulin Ratio 0.8 (0.8-1.8); Bilirubin, Total 0.6 mg/dL (0.1-1.0); Bun/Creatinine Ratio 6.3 (12.0-20.0); Calcium, Blood 8.3 mg/dL (8.5-10.1); Creatinine, Blood 9.73 mg/dL (0.60-1.20); Globulin, Blood 4.5 g/dL (2.2-4.0); Potassium, Blood 4.6 mmol/L (3.5-5.5); Total Protein, Blood 7.9 g/dL (6.4-8.2)
[2024-10-28] MEDS ORDERED: ZOLOFT25 MG PO (15:30)
[2024-10-28] MEDS ORDERED: AMOX-CLAV 875-1 EAC5 PO (15:30)
[2024-10-28] MEDS ORDERED: CefTRIAXone Sodium 1,000 MG in NS 100 ML IV ONE (15:30)
[2024-10-28] MEDS ORDERED: Aspirin 325 MG Tab PO ONE (16:25)
[2024-10-28 17:27] LABS: Anti-Xa UFH, PHA Monitoring <0.10 IU/mL; International Normalized Ratio 1.03
[2024-10-28] MEDS ORDERED: Dose Adjust by Pharmacy XX STA (17:47)
[2024-10-28] MEDS ORDERED: Heparin Sodium 5000 Units/ML 1ML MDV IV ONE (17:50)
[2024-10-28] MEDS ORDERED: Heparin Sodium,Porcine/0.5 NS 500 ML IV SCH (17:50)
[2024-10-28] MEDS ORDERED: Metoclopramide HCl 5MG / ML 2ML Vial IV PRN (18:20)
[2024-10-28] MEDS ORDERED: Magnesium Hydroxide Conc 10 ML UDC PO PRN (18:20)
[2024-10-28] MEDS ORDERED: Bisacodyl 10 MG Supp PR PRN (18:20)
[2024-10-28] MEDS ORDERED: FLU VACC TS2024-25(6MOS UP)/PF 45 MCG/0.5 ML SYRINGE IM ONE (18:20)
[2024-10-28] MEDS ORDERED: Ondansetron HCl 2 MG / ML 2ML Vial IV PRN (18:20)
[2024-10-28] MEDS ORDERED: Albuterol 2.5 MG/3 ML VIAL INH PRN (18:25)
[2024-10-28 19:12] LABS: Base Excess Venous -0.3 mmol/L; Bicarbonate Venous 23.8 mmol/L (24.0-30.0); PCO2 Venous 45.7 mmHg (38-42); pH Blood Venous 7.35 (7.34-7.37)
[2024-10-28] MEDS ORDERED: NIFEdipine 60 MG TabCR PO STA (19:27)
[2024-10-28] MEDS ORDERED: Carvedilol 25 MG Tab PO STA (19:28)
[2024-10-28] MEDS ORDERED: Dextrose 50% 50 ML Vial IV PRN (19:30)
[2024-10-28] MEDS ORDERED: HydrALAZINE HCl 20 MG / ML 1ML Vial IV PRN (19:30)
[2024-10-28] MEDS ORDERED: Cefepime HCl 1,000 MG in NS 100 ML IV SCH (21:00)
[2024-10-28] MEDS ORDERED: Lactobacil 2-S.Thermo-Bifido 1 1 Cap PO SCH (21:00)
[2024-10-29] VITALS (12 sets, daily range): BP systolic 110–189; BP diastolic 51–77
[2024-10-29] MEDS ORDERED: Dose Adjust by Pharmacy XX STA ×2 (02:06→06:51)
[2024-10-29 05:30] LABS: BASOPHILS ABSOLUTE AUTO 0.07 K/mm3 (0.00-0.23); BASOPHILS PERCENT AUTO 1 % (0-2); EOSINOPHILS ABSOLUTE AUTO 0.18 K/mm3 (0.00-0.68); EOSINOPHILS PERCENT AUTO 1 % (0-6); Hemoglobin 8.8 g/dL (13.5-17.5); IMMATURE GRAN ABSOLUTE AUTO 0.08 K/mm3 (0.00-0.10); IMMATURE GRAN PERCENT AUTO 1 % (0-1); LYMPHOCYTES ABSOLUTE AUTO 1.61 K/mm3 (0.84-5.20); LYMPHOCYTES PERCENT AUTO 11 % (21-46); MONOCYTES PERCENT AUTO 9 % (4-13); Mean Corpuscular HGB 30.6 pg (26.0-34.0); Mean Corpuscular HGB Conc 33.8 g/dL (31.5-36.5); Mean Corpuscular Volume 90 fL (80-100); Mean Platelet Volume 10.8 fL (9.1-12.4); NEUTROPHILS ABSOLUTE AUTO 12.02 K/mm3 (1.96-9.15); NEUTROPHILS PERCENT AUTO 78 % (41-73); Platelet Count 213 K/mm3 (150-400); RDW Coefficient Variation 12.8 % (11.7-14.2); RDW Standard Deviation 42.1 fL (35.1-46.3); Red Blood Cell Count 2.88 M/mm3 (4.30-5.90); White Blood Cell Count 15.36 K/mm3 (4.00-11.30)
--- NOTE | 2024-10-29 06:25 | NUR ---
SHIFT SUMMARY NEURO: A/OX4 CARDIAC: TROPONINS TRENDED UP. D DIMER ELEVATED. CARDIOLOGY CONSULTED. BNP 1143. LUNGS: ON 8L HFNC. BILATERAL DIMINISHED BASES. NO PRODUCTION OF SPUTUM THIS SHIFT. GI/: C/O VOMITING PRIOR TO ADMIT. PT REPORTS THEY STILL MAKE URING. THEIR HD DAYS ARE NORMALLY SATURDAY AND SATURDAY. HD COMPLETED LATE LAST NIGHT AND PULLED 3000ML. FISTULA TO BUTCH/
[2024-10-29 06:50] LABS: Iron Serum 19 ug/dL (65-175); Magnesium, Blood 2.3 mg/dL (1.6-2.4); Percent Saturation 9.1 % (20.0-50.0); Total Iron Binding Capacity 208 ug/dL (250-450)
[2024-10-29 06:51] LABS: Albumin, Blood 2.8 g/dL (3.4-5.0); Anion Gap 15 mmol/L (3-11); Blood Urea Nitrogen 42 mg/dL (8-24); Bun/Creatinine Ratio 6.1 (12.0-20.0); CO2, Blood 29 mmol/L (21-32); Calcium, Blood 8.2 mg/dL (8.5-10.1); Chloride, Blood 95 mmol/L (98-108); Creatinine, Blood 6.88 mg/dL (0.60-1.20); Glomerular Filtration Rate 9 (60-); Glucose, Blood 147 mg/dL (70-99); Phosphorus, Blood 5.3 mg/dL (2.5-4.9); Sodium, Blood 135 mmol/L (136-145)
[2024-10-29] MEDS ORDERED: Heparin Sodium 5000 Units/ML 1ML MDV IV ONE ×2 (06:55→20:20)
[2024-10-29] MEDS ORDERED: Carvedilol 25 MG Tab PO SCH (08:00)
[2024-10-29] MEDS ORDERED: Sevelamer Carbonate 800 MG Tab PO SCH (08:30)
--- NOTE | 2024-10-29 08:37 | NUR ---
Given morning medications, after a time b/p to be rechecked to assess for need of hydralazine dose or not. Pt denies any symptoms, states he has no needs at this time.
[2024-10-29] MEDS ORDERED: Vitamin B Cmplx/Vit C/Folic Ac 1 Tab PO SCH (09:00)
[2024-10-29] MEDS ORDERED: NIFEdipine 60 MG TabCR PO SCH ×2 (09:00)
[2024-10-29] MEDS ORDERED: Azithromycin 250 MG Tab PO SCH (09:00)
[2024-10-29] MEDS ORDERED: Atorvastatin 10 MG Tab PO SCH (09:00)
[2024-10-29] MEDS ORDERED: Aspirin 81 MG TabEC PO SCH (09:00)
[2024-10-29] MEDS ORDERED: Torsemide 20 MG TAB PO SCH ×2 (09:00→17:00)
[2024-10-29] MEDS ORDERED: Heparin Sodium 5000 Units/ML 1ML MDV SC SCH (09:00)
--- NOTE | 2024-10-29 09:10 | NUR ---
Dr. Garcia here to see the patient. Adjustment to dose of torsemide made, and hydralazine also given due to b/p greater than 180 systolic, 45 minutes after administration of a.m. meds. Heparin gtt ongoing until tomorrow.
--- NOTE | 2024-10-29 12:48 | NUR ---
pt c/o feeling very nauseated about an hour ago. RN covering gave him some reglan for relief and he is now sleeping. He stated this morning that he has had sensitivity causing hypotension to p.o. hydralazine in the past. He has dropped his systolic pressure from 180s this morning to 110s since getting IV hydralazine this morning around 0900.
--- NOTE | 2024-10-29 16:58 | NUR ---
CBG over 200; pt remembered that he had forgotten to reconnect his basal insulin delivery pump post dialysis yesterday. He reconnected it to the patch on his right lower abdomen, and administered the insulin per his home regimen.
[2024-10-30] VITALS (12 sets, daily range): BP systolic 118–160; BP diastolic 46–62
[2024-10-30 02:12] LABS: BASOPHILS ABSOLUTE AUTO 0.05 K/mm3 (0.00-0.23); BASOPHILS PERCENT AUTO 0 % (0-2); EOSINOPHILS ABSOLUTE AUTO 0.45 K/mm3 (0.00-0.68); EOSINOPHILS PERCENT AUTO 4 % (0-6); Hematocrit 24.8 % (37.0-53.0); Hemoglobin 8.5 g/dL (13.5-17.5); IMMATURE GRAN ABSOLUTE AUTO 0.09 K/mm3 (0.00-0.10); IMMATURE GRAN PERCENT AUTO 1 % (0-1); LYMPHOCYTES ABSOLUTE AUTO 1.88 K/mm3 (0.84-5.20); LYMPHOCYTES PERCENT AUTO 17 % (21-46); MONOCYTES ABSOLUTE AUTO 1.29 K/mm3 (0.16-1.47); MONOCYTES PERCENT AUTO 11 % (4-13); Mean Corpuscular HGB 30.6 pg (26.0-34.0); Mean Corpuscular HGB Conc 34.3 g/dL (31.5-36.5); Mean Corpuscular Volume 89 fL (80-100); Mean Platelet Volume 10.8 fL (9.1-12.4); NEUTROPHILS ABSOLUTE AUTO 7.63 K/mm3 (1.96-9.15); NEUTROPHILS PERCENT AUTO 67 % (41-73); Platelet Count 230 K/mm3 (150-400); RDW Coefficient Variation 12.4 % (11.7-14.2); RDW Standard Deviation 40.7 fL (35.1-46.3); Red Blood Cell Count 2.78 M/mm3 (4.30-5.90); White Blood Cell Count 11.39 K/mm3 (4.00-11.30)
[2024-10-30 02:54] LABS: Magnesium, Blood 2.3 mg/dL (1.6-2.4)
[2024-10-30 02:59] LABS: Albumin, Blood 2.6 g/dL (3.4-5.0); Albumin/Globulin Ratio 0.6 (0.8-1.8); Bilirubin, Total 0.5 mg/dL (0.1-1.0); Bun/Creatinine Ratio 7.1 (12.0-20.0); Creatinine, Blood 8.08 mg/dL (0.60-1.20); Globulin, Blood 4.1 g/dL (2.2-4.0); Phosphorus, Blood 5.6 mg/dL (2.5-4.9); Potassium, Blood 3.8 mmol/L (3.5-5.5); Total Protein, Blood 6.7 g/dL (6.4-8.2)
[2024-10-30] MEDS ORDERED: Clarify Drug Order XX ONE (03:15)
--- NOTE | 2024-10-30 08:48 | NUR ---
DR. CRESPO TO BEDSIDE TO SEE THE PT. THE PT REFUSED AN ANGIO AND WAS AGGREEABLE TO AN OUT PT STRESS TEST. HEP GTT D/C'D, PT OKAY TO EAT. DR. RIVERA WAS CALLED TO SEE IF THE PT WILL HAVE DIALYSIS, HE WAS NOT REACHED AT THIS TIME. SEE NOTES FOR UPDATES.
[2024-10-30] MEDS ORDERED: Sod Ferric Gluc Complx/Sucrose 125 MG in NS 100 ML IV SCH (09:00)
[2024-10-30] MEDS ORDERED: Epoetin Alfa-EPBX 10,000 Unit/ML 1ML Vial SC SCH (09:00)
[2024-10-30] MEDS ORDERED: AZIT500 PO (14:10)
[2024-10-30] MEDS ORDERED: Cefpodoxime Pr100 MG PO (14:11)
== END 2024-10-30 14:39 | disposition home or self-care (01) | DRG 871 ==
LOC: ER 10:40 → ERHOLD 10:41 → PCU 10:41
PROVIDERS: Hospitalist; Nurse Practitioner Acute Care; Physician Assistant; Student in an Organized Health Care Education/Training Program; ADMIT Family Medicine
PROC: 3E03329 Introduction of Other Anti-infective into Peripheral Vein, Percutaneous Approach (ICD-10-PCS; 2024-10-28)
PROC: 5A1D70Z Performance of Urinary Filtration, Intermittent, Less than 6 Hours Per Day (ICD-10-PCS; principal; 2024-10-29)
PROC: 5A0935A Assistance with Respiratory Ventilation, Less than 24 Consecutive Hours, High Flow/Velocity Cannula (ICD-10-PCS; 2024-10-29)
DX: A41.9 Sepsis, unspecified organism (principal); I21.A1 Myocardial infarction type 2; J18.9 Pneumonia, unspecified organism; J96.01 Acute respiratory failure with hypoxia; N18.6 End stage renal disease; I13.2 Hypertensive heart and chronic kidney disease with heart failure and with stage 5 chronic kidney disease, or end stage renal disease; I16.1 Hypertensive emergency; I50.32 Chronic diastolic (congestive) heart failure; Z96.89 Presence of other specified functional implants; D63.1 Anemia in chronic kidney disease; E78.5 Hyperlipidemia, unspecified; E10.22 Type 1 diabetes mellitus with diabetic chronic kidney disease; I25.10 Atherosclerotic heart disease of native coronary artery without angina pectoris; D50.9 Iron deficiency anemia, unspecified; E10.319 Type 1 diabetes mellitus with unspecified diabetic retinopathy without macular edema; E10.42 Type 1 diabetes mellitus with diabetic polyneuropathy; I16.0 Hypertensive urgency; Z99.2 Dependence on renal dialysis; Z79.899 Other long term (current) drug therapy; Z79.4 Long term (current) use of insulin; Z79.82 Long term (current) use of aspirin; Z79.2 Long term (current) use of antibiotics; I25.2 Old myocardial infarction; Z89.521 Acquired absence of right knee; Z90.49 Acquired absence of other specified parts of digestive tract; Z98.49 Cataract extraction status, unspecified eye; Z87.891 Personal history of nicotine dependence; Z98.890 Other specified postprocedural states; Z86.73 Personal history of transient ischemic attack (TIA), and cerebral infarction without residual deficits; Z79.84 Long term (current) use of oral hypoglycemic drugs; Z28.21 Immunization not carried out because of patient refusal; Z91.09 Other allergy status, other than to drugs and biological substances; Z91.158 Patient's noncompliance with renal dialysis for other reason; Z91.048 Other nonmedicinal substance allergy status
CPT/HCPCS: 36415; 71046; 71260; 80053; 80069; 82803; 82947; 83036; 83540; 83550; 83735; 83880; 84100; 84484; 85025; 85379; 85520; 85610; 85730; 87040; 93005; 93010; 93306; 94660; 94762; 96365-59; 96366; 96368; 96375; 96376; 96376-59; 99285-25; A9270; G0378; J0360; J0692; J0696; J1644; J2765; J2916; Q5106; Q9967

== ENCOUNTER → 2025-04-20 | Outpatient (CLI) | payer OTHER ==
[~2025-04-20] MED LIST changes: +AMOX-CLAV 875-1 EAC5 PO; +ATOR40TA PO; +AZIT500 PO; +BACLOFEN5 M1 PO; +Cefpodoxime Pr100 MG PO; +TORS10 PO; +ZOLOFT25 MG PO
[2025-04-20 11:59] LABS: Albumin, Blood 4.3 g/dL (3.4-5.0); Bilirubin, Total 0.4 mg/dL (0.1-1.0); Bun/Creatinine Ratio 6.3 (12.0-20.0); Calcium, Blood 9.6 mg/dL (8.5-10.1); Creatinine, Blood 5.53 mg/dL (0.60-1.20); Globulin, Blood 4.4 g/dL (2.2-4.0); Magnesium, Blood 2.2 mg/dL (1.6-2.4); Potassium, Blood 3.7 mmol/L (3.5-5.5); Total Protein, Blood 8.7 g/dL (6.4-8.2)
[2025-04-20 12:01] LABS: BASOPHILS ABSOLUTE AUTO 0.07 K/mm3 (0.00-0.23); BASOPHILS PERCENT AUTO 1 % (0-2); EOSINOPHILS ABSOLUTE AUTO 0.18 K/mm3 (0.00-0.68); EOSINOPHILS PERCENT AUTO 2 % (0-6); Hematocrit 37.8 % (37.0-53.0); Hemoglobin 13.2 g/dL (13.5-17.5); IMMATURE GRAN ABSOLUTE AUTO 0.07 K/mm3 (0.00-0.10); IMMATURE GRAN PERCENT AUTO 1 % (0-1); LYMPHOCYTES ABSOLUTE AUTO 2.02 K/mm3 (0.84-5.20); LYMPHOCYTES PERCENT AUTO 17 % (21-46); MONOCYTES ABSOLUTE AUTO 1.21 K/mm3 (0.16-1.47); MONOCYTES PERCENT AUTO 10 % (4-13); Mean Corpuscular HGB 31.1 pg (26.0-34.0); Mean Corpuscular HGB Conc 34.9 g/dL (31.5-36.5); Mean Corpuscular Volume 89 fL (80-100); NEUTROPHILS ABSOLUTE AUTO 8.36 K/mm3 (1.96-9.15); NEUTROPHILS PERCENT AUTO 70 % (41-73); Platelet Count 265 K/mm3 (150-400); RDW Coefficient Variation 13.2 % (11.7-14.2); RDW Standard Deviation 42.9 fL (35.1-46.3); Red Blood Cell Count 4.25 M/mm3 (4.30-5.90); White Blood Cell Count 11.91 K/mm3 (4.00-11.30)
== END ==
LOC: LAB 11:43 → LAB SHORT 11:43
PROVIDERS: Physician Assistant Medical
DX: I95.9 Hypotension, unspecified (principal)
CPT/HCPCS: 80053; 83735; 84100; 84484; 85025

== ENCOUNTER 2025-04-29 16:06 | Observation (INO) | payer OTHER ==
[~2025-04-29] VITALS: Ht 172.7 cm; Wt 86.2 kg
[~2025-04-29 16:06] MED LIST changes: -BACLOFEN5 M1 PO
[2025-04-29 17:20] LABS: BASOPHILS ABSOLUTE AUTO 0.06 K/mm3 (0.00-0.23); BASOPHILS PERCENT AUTO 1 % (0-2); EOSINOPHILS ABSOLUTE AUTO 0.23 K/mm3 (0.00-0.68); EOSINOPHILS PERCENT AUTO 2 % (0-6); Hematocrit 31.9 % (37.0-53.0); Hemoglobin 11.1 g/dL (13.5-17.5); IMMATURE GRAN ABSOLUTE AUTO 0.05 K/mm3 (0.00-0.10); IMMATURE GRAN PERCENT AUTO 0 % (0-1); LYMPHOCYTES PERCENT AUTO 13 % (21-46); MONOCYTES ABSOLUTE AUTO 1.17 K/mm3 (0.16-1.47); MONOCYTES PERCENT AUTO 9 % (4-13); Mean Corpuscular HGB 31.5 pg (26.0-34.0); Mean Corpuscular HGB Conc 34.8 g/dL (31.5-36.5); Mean Corpuscular Volume 91 fL (80-100); Mean Platelet Volume 10.6 fL (9.1-12.4); NEUTROPHILS ABSOLUTE AUTO 9.35 K/mm3 (1.96-9.15); NEUTROPHILS PERCENT AUTO 75 % (41-73); Platelet Count 232 K/mm3 (150-400); RDW Standard Deviation 42.9 fL (35.1-46.3); Red Blood Cell Count 3.52 M/mm3 (4.30-5.90); White Blood Cell Count 12.46 K/mm3 (4.00-11.30)
[2025-04-29 18:32] LABS: Albumin, Blood 3.5 g/dL (3.4-5.0); Albumin/Globulin Ratio 0.8 (0.8-1.8); Bilirubin, Total 0.5 mg/dL (0.1-1.0); Bun/Creatinine Ratio 10.4 (12.0-20.0); Calcium, Blood 8.5 mg/dL (8.5-10.1); Creatinine, Blood 6.24 mg/dL (0.60-1.20); Globulin, Blood 4.3 g/dL (2.2-4.0); Potassium, Blood 4.8 mmol/L (3.5-5.5); Total Protein, Blood 7.8 g/dL (6.4-8.2)
[2025-04-29] MEDS ORDERED: BACLOFEN5 M1 PO (21:40)
[2025-04-29] MEDS ORDERED: Acetaminophen 325 MG TABLET PO PRN (22:35)
[2025-04-30] VITALS (7 sets, daily range): BP systolic 148–187; BP diastolic 59–76
--- NOTE | 2025-04-30 01:56 | NUR ---
PATIENT IS A NEW ADMIT FROM THE ED. ALERT ORIENTED AND INDEPENDENT WITH SELF TRANSFER FROM [facility] TO BED. DENIES CHEST PAIN, SOB, AND N/V. FISTULA LEFT ARM. REPORTS GOT NEW INSULIN PUMP A MONTH AGO WITH MONITOR DEVICE AND AUTO DOSING. TELE MONITOR NSR 80'S. HYPERTENSIVE ON ADMIT. AFEBRILE. NPO > BREAKFAST. REPORTS LIVES ALONE LOCALLY WITH HIS DOG IN AN APARTMENT. REPORTS WANTS TO SLEEP AFTER ASSESSMENT. WCTM.
[2025-04-30 06:36] LABS: BASOPHILS ABSOLUTE AUTO 0.04 K/mm3 (0.00-0.23); BASOPHILS PERCENT AUTO 0 % (0-2); EOSINOPHILS ABSOLUTE AUTO 0.29 K/mm3 (0.00-0.68); EOSINOPHILS PERCENT AUTO 3 % (0-6); Hematocrit 30.3 % (37.0-53.0); Hemoglobin 10.4 g/dL (13.5-17.5); IMMATURE GRAN ABSOLUTE AUTO 0.04 K/mm3 (0.00-0.10); IMMATURE GRAN PERCENT AUTO 0 % (0-1); LYMPHOCYTES ABSOLUTE AUTO 1.97 K/mm3 (0.84-5.20); LYMPHOCYTES PERCENT AUTO 17 % (21-46); MONOCYTES ABSOLUTE AUTO 1.48 K/mm3 (0.16-1.47); MONOCYTES PERCENT AUTO 13 % (4-13); Mean Corpuscular HGB 30.9 pg (26.0-34.0); Mean Corpuscular HGB Conc 34.3 g/dL (31.5-36.5); Mean Corpuscular Volume 90 fL (80-100); Mean Platelet Volume 10.8 fL (9.1-12.4); NEUTROPHILS ABSOLUTE AUTO 7.78 K/mm3 (1.96-9.15); NEUTROPHILS PERCENT AUTO 67 % (41-73); Platelet Count 224 K/mm3 (150-400); RDW Standard Deviation 42.8 fL (35.1-46.3); Red Blood Cell Count 3.37 M/mm3 (4.30-5.90)
[2025-04-30 07:29] LABS: Albumin, Blood 3.7 g/dL (3.4-5.0); Anion Gap 14 mmol/L (3-11); Blood Urea Nitrogen 64 mg/dL (8-24); Bun/Creatinine Ratio 10.8 (12.0-20.0); CO2, Blood 19 mmol/L (21-32); Calcium, Blood 8.4 mg/dL (8.5-10.1); Chloride, Blood 111 mmol/L (98-108); Creatinine, Blood 5.91 mg/dL (0.60-1.20); Glomerular Filtration Rate 11 (60-); Glucose, Blood 61 mg/dL (70-99); Magnesium, Blood 1.9 mg/dL (1.6-2.4); Phosphorus, Blood 5.3 mg/dL (2.5-4.9); Potassium, Blood 4.8 mmol/L (3.5-5.5); Sodium, Blood 139 mmol/L (136-145)
[2025-04-30] MEDS ORDERED: Insulin Human Lispro 100 Units/ML 3ML Syringe SC SCH (07:30)
[2025-04-30] MEDS ORDERED: Sevelamer Carbonate 800 MG Tab PO SCH (08:00)
[2025-04-30] MEDS ORDERED: NIFEdipine 60 MG TabCR PO SCH (09:00)
[2025-04-30] MEDS ORDERED: Heparin Sodium,Porcine 5,000 UNIT/0.5 ML SDV SC SCH (09:00)
[2025-04-30] MEDS ORDERED: Baclofen 10 MG Tab PO SCH (09:00)
[2025-04-30] MEDS ORDERED: Atorvastatin 10 MG Tab PO SCH (09:00)
[2025-04-30] MEDS ORDERED: Aspirin 81 MG Chew PO SCH (09:00)
[2025-04-30] MEDS ORDERED: Nitroglycerin 2 MG/20 ML BTL ONE (14:34)
[2025-04-30] MEDS ORDERED: Heparin Sodium 1000 Units/ML 10ML MDV ONE (14:34)
[2025-04-30] MEDS ORDERED: NS 1,000 ML IV ONE (14:34)
[2025-04-30] MEDS ORDERED: FentaNYL Citrate 50 MCG/ML 2 ML Injection ONE ×3 (14:42→15:24)
[2025-04-30] MEDS ORDERED: Midazolam HCl 1MG / ML 2ML Vial ONE ×3 (14:42→15:23)
[2025-04-30] MEDS ORDERED: NS 500 ML IV ONE (14:43)
[2025-04-30] MEDS ORDERED: HydrALAZINE HCl 20 MG / ML 1ML Vial ONE (15:08)
--- NOTE | 2025-04-30 17:02 | NUR ---
SHIFT SUMMARY PT AOX4, COOPERATIVE, ABLE TO MAKE NEEDS KNOWN. PT IS IND IN ROOM. ON TELE, ROOM AIR. PT IS COOPERATIVE BUT NOT HAPPY ABOUT SPENDING THE NIGHT AT HOSPITAL. RETURNED FROM IR PROCEDURE. WAS TOLD JAMIE DOCTOR OF MEDICINE WAS WAITING FOR PT. CONTACTED JAMIE, AND WAS TOLD DIALYSIS WOULD HAPPEN TOMORROW. JONATHAN AND NICOLE ARE INFORMED OF THIS. PT CAN BE DC'D TOMORROW AFTER DIALIZED. BED IN LOWEST POSITION, CALL LIGHT WITHIN REACH.
[2025-04-30] MEDS ORDERED: OxyCODONE HCL 5 MG TAB PO PRN (19:45)
[2025-05-01] VITALS (12 sets, daily range): BP systolic 132–210; BP diastolic 52–150
--- NOTE | 2025-05-01 04:27 | NUR ---
SHIFT SUMMARY NOC PT A/O X 4. PLEASANT AND COOPERATIVE WITH CARE. VSS. HS CBG 103, PT HAS INSULIN PUMP ON LLQ ABD AND [employer] GLUCOSE MONITOR ON R UPPER THIGH. PT HAD FISTULAGRAM YESTERDAY WITH SLIP KNOT'S IN PLACE IN BUTCH FISTULA FOR BLEEDING. PT HAS HAD C/O OF PAIN IN BUTCH AND ORDERS FOR OXYCODONE 5MG Q6P OBTAINED. PT SCHEDULED FOR DIALYSIS PRIOR TO DISCHARGE TODAY. PT ON TELE SINUS RHYTHM @ 77 BPM, TELE STRIP REVIEWED BY RN AND AGREE WITH RATE/RHTYHM. PT CURRENTLY RESTING WITH BED IN LOWEST POSITION, AND CALL LIGHT WITHIN REACH.
[2025-05-01] MEDS ORDERED: OxyCODONE HCL 5 MG TAB PO ONE (06:15)
[2025-05-01 06:29] LABS: BASOPHILS ABSOLUTE AUTO 0.04 K/mm3 (0.00-0.23); BASOPHILS PERCENT AUTO 0 % (0-2); EOSINOPHILS ABSOLUTE AUTO 0.25 K/mm3 (0.00-0.68); EOSINOPHILS PERCENT AUTO 2 % (0-6); Hematocrit 30.7 % (37.0-53.0); Hemoglobin 10.3 g/dL (13.5-17.5); IMMATURE GRAN ABSOLUTE AUTO 0.03 K/mm3 (0.00-0.10); IMMATURE GRAN PERCENT AUTO 0 % (0-1); LYMPHOCYTES PERCENT AUTO 14 % (21-46); MONOCYTES ABSOLUTE AUTO 1.11 K/mm3 (0.16-1.47); MONOCYTES PERCENT AUTO 11 % (4-13); Mean Corpuscular HGB 30.7 pg (26.0-34.0); Mean Corpuscular HGB Conc 33.6 g/dL (31.5-36.5); Mean Corpuscular Volume 91 fL (80-100); Mean Platelet Volume 10.2 fL (9.1-12.4); NEUTROPHILS ABSOLUTE AUTO 7.58 K/mm3 (1.96-9.15); NEUTROPHILS PERCENT AUTO 72 % (41-73); Platelet Count 222 K/mm3 (150-400); RDW Coefficient Variation 13.2 % (11.7-14.2); RDW Standard Deviation 44.1 fL (35.1-46.3); Red Blood Cell Count 3.36 M/mm3 (4.30-5.90); White Blood Cell Count 10.51 K/mm3 (4.00-11.30)
[2025-05-01] MEDS ORDERED: Ondansetron HCl 2 MG / ML 2ML Vial IV PRN (06:40)
[2025-05-01 07:05] LABS: Bun/Creatinine Ratio 10.1 (12.0-20.0); Calcium, Blood 8.2 mg/dL (8.5-10.1); Creatinine, Blood 6.05 mg/dL (0.60-1.20); Potassium, Blood 5.5 mmol/L (3.5-5.5)
[2025-05-01] MEDS ORDERED: HYDROcodone 5-APAP 325 TAB PO PRN (07:50)
--- NOTE | 2025-05-01 08:01 | NUR ---
PATIENT C/O NAUSEA, PAIN IN LEFT ARM. BLOOD GLUCOSE 70 - GAVE CRANBERRY JUICE, PEANUT BUTTER & SALTINE CRACKERS. MEDICATED PER JAN.
--- NOTE | 2025-05-01 08:48 | NUR ---
0805- DR. YIP WAS CALLED AND ASKED IF HE WOULD LIKE PT'S SLIP-NOT REMOVED X2 REMOVED. GAVE VERBAL TO REMOVE BOTH SLIP-NOT DEVICES. BOTH DEVICES REMOVED WITH NO ISSUES WITH CHARGE NURSE BETH JERONIMO. SITES CLEANSED W/CHG AND CHG TEGADERM X2 PLACED ON SITES. PT TOLERATED WELL.
--- NOTE | 2025-05-01 10:49 | NUR ---
1000- VERBAL FROM JONATHAN MCKINNEY TO ORDER 25-50 MCG FENTANYL Q 2 PRN. ALSO GAVE VERBAL TO PLACE IR PHI CONSULT. INFORMED THAT PROPERTIES SUPERVISOR WAS UNABLE TO PERFORM DIALYSIS THIS MORNING ON PT'S FISTULA. JAMIE PROPERTIES SUPERVISOR TO CALL YOUNG AND INFORM HIM.
[2025-05-01] MEDS ORDERED: FentaNYL Citrate 50 MCG/ML 2 ML Injection IV PRN (10:55)
--- NOTE | 2025-05-01 11:21 | NUR ---
CONSULT FAXED TO DR YIP
[2025-05-01] MEDS ORDERED: Prochlorperazine Edisylate 10 mg Vial IV PRN (11:35)
--- NOTE | 2025-05-01 13:08 | NUR ---
1300- CALL FROM [facility] TO HAVE PT NPO AND START D5 1/2 NS AT 75 NOW CONTINUOUSLY WHILE PT IS NPO WAITING FOR SX.
--- NOTE | 2025-05-01 13:14 | NUR ---
1310- THIS RN REPORTED PT'S BP TO MD CASTILLO. GAVE VERBAL TO GIVE LABETALOL 10MG IV NOW.
[2025-05-01] MEDS ORDERED: Labetalol HCL 5 MG/ML 4ML Injection (Single Dose) IV ONE (13:15)
[2025-05-01] MEDS ORDERED: D5W-1/2NS 1,000 ML IV SCH (13:15)
[2025-05-01] MEDS ORDERED: NS 250 ML IV ONE (13:49)
[2025-05-01] MEDS ORDERED: Heparin Sodium 1000 Units/ML 10ML MDV ONE (13:49)
--- NOTE | 2025-05-01 14:17 | NUR ---
1410- PT LEFT MEDICAL FLOOR FOR SURGERY FOR TEMPORARY DIALYSIS PORT.
[2025-05-01] MEDS ORDERED: FentaNYL Citrate 50 MCG/ML 2 ML Injection ONE (14:33)
[2025-05-01] MEDS ORDERED: Midazolam HCl 1MG / ML 2ML Vial ONE (14:33)
[2025-05-01] MEDS ORDERED: NS 500 ML IV ONE (14:33)
[2025-05-01] MEDS ORDERED: Heparin Sodium 10,000 Units/ML 1ML MDV ONE (14:44)
--- NOTE | 2025-05-01 15:05 | NUR ---
1500 RETURNED TO ROOM PERMACATH TO RIGHT UPPER CHEST WITH DRESSING INTACT. PT DENIES ANY PAIN AT SITE, DROWSY BUT AWAKENS TO VERBAL STIMULI
[2025-05-01] MEDS ORDERED: Sodium Zirconium Cyclosilicate 10 GM Packet PO ONE (16:45)
[2025-05-01] MEDS ORDERED: Carvedilol 6.25 MG Tab PO SCH (17:00)
--- NOTE | 2025-05-01 18:21 | NUR ---
SHIFT SUMMARY: PATIENT IS AOX4 AND COOPERATIVE. PERSISTENT LEFT ARM PAIN EARLY IN THE DAY, MEDICATED PER THE MAR. PATIENT HAS ALSO HAD PERSISTENT HIGH BLOOD PRESSURE THROUGHOUT THE DAY, ALSO TREATED PER THE MAR. RECENT BP'S LOWER WITH ADDED BP MEDS. PATIENT AMBULATES INDEPENDENTLY, USES CALL LIGHT APPROPRIATELY TO COMMUNICATE NEEDS. BLOOD GLUCOSE CONTROLLED VIA PATIENT'S INSULIN PUMP WHICH HAS ADMINISTERED 1.6 UNITS THIS SHIFT. PATIENT WAS NAUSEATED EARLIER TODAY AND VOMITED SEVERAL TIMES AND WAS MEDICATED FOR NAUSEA PER THE JAN. HE WAS TRANSPORTED TO DIALYSIS TODAY BUT THIS WAS UNSUCCESSFUL DUE TO INABILITY TO ACCESS FISTULA FOR DIALYSIS. PATIENT IS CURRENTLY SITTING UP IN BED EATING DINNER.
--- NOTE | 2025-05-01 18:26 | NUR ---
1500- PT BACK TO MEDICAL FLOOR IN STABLE CONDITION. PT NOW HAS TEMPORARY RIGHT CHEST PERMACATH. PT HAS NO COMPLAINTS. DENIES ANY PAIN. REQUESTS TO SLEEP. POST OP VITALS STARTED. MD VIDAL CALLED AND ASKED IF PT WAS GOING TO HAVE DIALYSIS TODAY. STATED PT WOULD HAVE DIALYSIS TOMORROW 05/02/25 IN THE AM FIRST THING.
[2025-05-02] VITALS (18 sets, daily range): BP systolic 131–233; BP diastolic 50–106
--- NOTE | 2025-05-02 04:51 | NUR ---
OCCUPATIONAL NURSE SUMMARY: PT A&O X4. DENIES N/V T/O SHIFT. MEDICATED X1 PER EMAR ORDERS FOR R UPPER CHEST PAIN S/P PERMACATH PLACEMENT; EFFECTIVE. PT HAS DECREASED THRILL AND NO BRUIT TO L AV FISTULA. C/O PAIN WITH LIGHT TOUCH TO L FA FISTULA SITE. NO ACUTE EVENTS T/O SHIFT. PT TO D/C HOME TODAY AFTER DIALYSIS. BED IN LOWEST POSITION. CALL LIGHT IN REACH. CARES ONGOING ORDERED.
[2025-05-02 06:56] LABS: Albumin, Blood 3.5 g/dL (3.4-5.0); Anion Gap 10 mmol/L (3-11); Blood Urea Nitrogen 58 mg/dL (8-24); CO2, Blood 21 mmol/L (21-32); Calcium, Blood 8.5 mg/dL (8.5-10.1); Chloride, Blood 111 mmol/L (98-108); Creatinine, Blood 6.43 mg/dL (0.60-1.20); Glomerular Filtration Rate 10 (60-); Glucose, Blood 75 mg/dL (70-99); Phosphorus, Blood 5.2 mg/dL (2.5-4.9); Potassium, Blood 4.8 mmol/L (3.5-5.5); Sodium, Blood 137 mmol/L (136-145)
--- NOTE | 2025-05-02 13:57 | NUR ---
1287- THIS RN NOTIFIED MD CASTILLO PT'S BP =191 SYSTOLIC. GAVE TELEPHONE VERBAL FOR 12.5 MG COREG NOW.
[2025-05-02] MEDS ORDERED: Carvedilol 6.25 MG Tab PO ONE (14:00)
--- NOTE | 2025-05-02 17:05 | NUR ---
DC-1600 PT LEFT IN STABLE CONDITION. PT LEFT WITH ALL BELONGINGS. PT BROUGHT DOWN IN WC BY THIS RN FOR DC. PT DROVE HIMSELF HOME. THIS RN BROUGHT PT TO HIS CAR IN PARKING LOT.
== END 2025-05-02 16:43 | disposition home or self-care (01) ==
LOC: ER 16:06 → MEDS 16:07 → ERHOLD 16:07 → MEDS 04-30 00:59
PROVIDERS: Hospitalist; Internal Medicine; Student in an Organized Health Care Education/Training Program; ADMIT Student in an Organized Health Care Education/Training Program
DX: T82.591A Other mechanical complication of surgically created arteriovenous shunt, initial encounter (principal); Y83.2 Surgical operation with anastomosis, bypass or graft as the cause of abnormal reaction of the patient, or of later complication, without mention of misadventure at the time of the procedure; R94.31 Abnormal electrocardiogram [ECG] [EKG]; I13.2 Hypertensive heart and chronic kidney disease with heart failure and with stage 5 chronic kidney disease, or end stage renal disease; I50.32 Chronic diastolic (congestive) heart failure; N18.6 End stage renal disease; E10.22 Type 1 diabetes mellitus with diabetic chronic kidney disease; D63.1 Anemia in chronic kidney disease; I25.2 Old myocardial infarction; Z99.2 Dependence on renal dialysis; Z87.891 Personal history of nicotine dependence; Z88.8 Allergy status to other drugs, medicaments and biological substances; Z88.1 Allergy status to other antibiotic agents; Z79.82 Long term (current) use of aspirin; Z79.899 Other long term (current) drug therapy
CPT/HCPCS: 36415; 36558; 36905; 76937; 77001; 80048; 80053; 80069; 82947; 83735; 84484; 85025; 93005; 93010; 96374; 96375; 96376; 99152; 99153; 99285-25; A9270; C1725; C1750; C1757; C1769; C1887; C1894; G0257; G0378; J0360; J0780; J1644; J2250; J2405; J3010; J7030; J7040; J7042; J7050; Q9967

== ENCOUNTER 2025-07-26 20:31 | Emergency (ER) | payer OTHER ==
[~2025-07-26] VITALS: Ht 172.7 cm; Wt 98.0 kg
[~2025-07-26 20:31] MED LIST changes: +BACLOFEN5 M1 PO
[2025-07-26 21:10] VITALS: BP 134/91
[2025-07-26] MEDS ORDERED: Lidocaine 4% 1 Patch TOP ONE (22:45)
[2025-07-26] MEDS ORDERED: LIDO700A20 TOP (22:52)
[2025-07-26] MEDS ORDERED: CYCL10 PO (22:52)
== END 2025-07-26 23:15 | disposition home or self-care (01) ==
LOC: ER 20:31
DX: M54.50 Low back pain, unspecified (principal); G89.29 Other chronic pain; I13.0 Hypertensive heart and chronic kidney disease with heart failure and stage 1 through stage 4 chronic kidney disease, or unspecified chronic kidney disease; I50.32 Chronic diastolic (congestive) heart failure; E11.22 Type 2 diabetes mellitus with diabetic chronic kidney disease; N18.4 Chronic kidney disease, stage 4 (severe); I25.2 Old myocardial infarction; Z87.891 Personal history of nicotine dependence; Z88.1 Allergy status to other antibiotic agents; Z88.8 Allergy status to other drugs, medicaments and biological substances; Z79.4 Long term (current) use of insulin; Z79.82 Long term (current) use of aspirin; Z79.899 Other long term (current) drug therapy; Z59.89 Other problems related to housing and economic circumstances
CPT/HCPCS: 99283-25; A9270